=== PATIENT | male | born 1940 | race Hispanic/Latino ===

== ENCOUNTER 2017-03-26 09:10 | Emergency (ER) | payer MEDICARE ==
[2017-03-26 09:14] VITALS: TEMP 98
--- NOTE | 2017-03-26 09:36 | C.PDOC ---
Time Seen by Provider: 03/26/17 09:27 Chief Complaint (Nursing): Lower Extremity Problem/Injury Past Medical History Vital Signs: Last Vital Signs Temp 98.0 F 03/26/17 09:10 Pulse 70 03/26/17 09:10 Resp 20 03/26/17 09:10 BP 204/78 H 03/26/17 09:10 Pulse Ox 96 03/26/17 09:10 ED Course And Treatment O2 Sat by Pulse Oximetry: 96 Disposition - Disposition Condition: STABLE Forms: [employer] (Azeri)
--- NOTE | 2017-03-26 09:53 | C.PDOC ---
History Of Present Illness 76 year old male presents to ED for evaluation of multiple abrasions, right elbow pain, nausea, and headache s/p fall yesterday. Patient states that he fell down face forward when walking down a steep hill and sustained abrasions to right elbow, right knee, nose, and forehead. Patient admits to loss of consciousness for few seconds. Notes taking Tylenol for pain. Otherwise, denies vomiting, dizziness, extremity weakness, numbness, or any other associated symptoms at this time. Time Seen by Provider: 03/26/17 09:27 Chief Complaint (Nursing): Lower Extremity Problem/Injury History Per: Patient History/Exam Limitations: no limitations Onset/Duration Of Symptoms: Days (1) Current Symptoms Are (Timing): Still Present Recent travel outside of the [place]: No Additional History Per: Patient - Knee Description Of Injury: Fell Past Medical History Reviewed: Historical Data, Nursing Documentation, Vital Signs Vital Signs: Last Vital Signs Temp 98.0 F 03/26/17 09:10 Pulse 77 03/26/17 11:20 Resp 16 03/26/17 11:20 BP 165/78 H 03/26/17 11:20 Pulse Ox 96 03/26/17 12:00 - Medical History PMH: Asthma, HTN Family History: States: Unknown Family Hx Review Of Systems Except As Marked, All Systems Reviewed And Found Negative. Constitutional: Negative for: Fever, Chills Cardiovascular: Negative for: Chest Pain Respiratory: Negative for: Shortness of Breath Gastrointestinal: Positive for: Nausea. Negative for: Vomiting, Abdominal Pain Musculoskeletal: Positive for: Arm Pain (right elbow pain). Negative for: Neck Pain, Back Pain Skin: Positive for: Other (multiple abrasions s/p fall) Neurological: Positive for: Headache. Negative for: Weakness, Numbness, Dizziness Physical Exam - Physical Exam Appears: Non-toxic, No Acute Distress Skin: Warm, Dry, Other (abrasions to right elbow and right knee) Head: Normacephalic, No Tenderness, Abrasion (forehead right ) Eye(s): bilateral: Normal Inspection, PERRL, EOMI Nose: No Discharge, No Epistaxis, No Deformity, No Tenderness, Other (abrasion to nose) Oral Mucosa: Moist Neck: Normal ROM, Supple Chest: Symmetrical Cardiovascular: Rhythm Regular, No Murmur Respiratory: Normal Breath Sounds, No Rales, No Rhonchi, No Wheezing Extremity: Normal ROM (FROM of right arm and leg), Tenderness (right lateral elbow over abrasion), Capillary Refill (less than 2 seconds), No Deformity, Swelling (lateral aspect of right elbow) Pulses: Right Radial: Normal Neurological/Psych: Oriented x3, Normal Speech, Normal Motor, Normal Sensation Gait: Steady ED Course And Treatment O2 Sat by Pulse Oximetry: 96 (RA) Pulse Ox Interpretation: Normal - CT Scan/US Head CT Other Rad Studies (CT/US): Read By Radiologist, Radiology Report Reviewed CT/US Interpretation: PROCEDURE: CT HEAD WITHOUT CONTRAST. HISTORY: s.p trip and fall with injury. COMPARISON: None available. TECHNIQUE: Axial computed tomography images were obtained through the head/brain without intravenous contrast. Radiation dose: Total exam DLP = 893.33 mGy-cm. This CT exam was performed using one or more of the following dose reduction techniques: Automated exposure control, adjustment of the mA and/or kV according to patient size, and/or use of iterative reconstruction technique. FINDINGS: HEMORRHAGE: No intracranial hemorrhage. BRAIN: No mass effect or edema. Mild-to- moderate atrophy is noted. Mild white matter changes likely due to chronic microvascular ischemic disease. VENTRICLES: Unremarkable. No hydrocephalus. CALVARIUM: Unremarkable. PARANASAL SINUSES: Unremarkable as visualized. No significant inflammatory changes. MASTOID AIR CELLS: Unremarkable as visualized. No inflammatory changes. OTHER FINDINGS: None. IMPRESSION: No evidence of acute intracranial hemorrhage. Lapw-yi-[id number] atrophy. Maxillofacial CT Other Rad Studies (CT/US): Read By Radiologist, Radiology Report Reviewed CT/US Interpretation: PROCEDURE: CT MAXILLOFACIAL BONES WITHOUT CONTRAST. HISTORY: s.p trip and fall with injury. COMPARISON: None. TECHNIQUE: Contiguous axial CT images of the maxillofacial bones were obtained. Coronal and sagittal reformats were generated. Radiation dose: Total exam DLP = 761.27 mGy-cm. This CT exam was performed using one or more of the following dose reduction techniques: Automated exposure control, adjustment of the mA and/ or kV according to patient size, and/or use of iterative reconstruction technique. FINDINGS: NASAL BONES: No evidence of acute displaced fracture. ORBITS: Unremarkable. PARANASAL SINUSES/ MASTOIDS: Clear. MAXILLA: Unremarkable. MANDIBLE/ TEMPOROMANDIBULAR JOINTS: Unremarkable. SKULL BASE: Unremarkable. TEMPORAL BONES: Middle ears and mastoid grossly unremarkable. OTHER FINDINGS: Mild soft tissue swelling seen at the frontal and right periorbital region. Status post internal fixation at the cervical spine. IMPRESSION: No evidence of acute fracture of the maxillofacial bones. Mild soft tissue swelling at the frontal and right periorbital region. Medical Decision Making Medical Decision Making: Impression: Fall Plan: * Right elbow x-ray * Right knee x-ray * Maxillofacial CT * Head CT Progress: All imaging reviewed, see official reports. No fractures or ICH Reassess Patient remained alert and oriented seated comfortably in no distress. I explained all results and provided copy of reports. Bacitracin and dressings applied to wounds. Disposition Counseled Patient/Family Regarding: Diagnosis, Need For Followup, Rx Given - Disposition Referrals: Billie Cao MD [Staff Provider] - Disposition: HOME/ ROUTINE Disposition Time: 12:00 Condition: STABLE Additional Instructions: Follow up with your primary medical doctor or clinic in 2-5 days for further evaluation. Take pain medications as needed. Return to the emergency department at any time if symptoms persist or worsen. Instructions: Contusion in Adults (ED), Abrasion (ED) Forms: [employer] (Guatemalan) - POA Present On Arrival: None - Clinical Impression Clinical Impression: Accidental fall, Multiple abrasions - PA / [employer] / Resident Statement MD/DO has reviewed & agrees with the documentation as recorded. - Scribe Statement The provider has reviewed the documentation as recorded by the Scribe Akanksha Galdamez All medical record entries made by the Arleneibe were at my direction and personally dictated by me. I have reviewed the chart and agree that the record accurately reflects my personal performance of the history, physical exam, medical decision making, and the department course for this patient. I have also personally directed, reviewed, and agree with the discharge instructions and disposition.
--- NOTE | 2017-03-26 10:52 | RAD ---
PROCEDURE: Radiographs of the right elbow. HISTORY: s.p trip and fall with injury COMPARISON: No prior. FINDINGS: BONES: No evidence of acute displaced fracture JOINTS: Mild osteoarthritic changes. SOFT TISSUES: Moderate soft tissue swelling seen at the posterior aspect of the right elbow. JOINT EFFUSION: No evidence of significant joint effusion OTHER FINDINGS: None. IMPRESSION: No evidence of acute fracture or dislocation. Moderate soft tissue swelling at the posterior aspect of the right elbow.
--- NOTE | 2017-03-26 10:54 | RAD ---
PROCEDURE: Right Knee Radiographs. HISTORY: s.p trip and fall with injury COMPARISON: None. FINDINGS: BONES: Normal. No fracture. JOINTS: Normal. No osteoarthritis. JOINT EFFUSION: None. OTHER FINDINGS: Mild soft tissue swelling IMPRESSION: No evidence of acute fracture or dislocation.
[2017-03-26 11:21] VITALS: BP 165/78; PULSE 77; RESP 16
--- NOTE | 2017-03-26 11:34 | CT ---
PROCEDURE: CT HEAD WITHOUT CONTRAST. HISTORY: s.p trip and fall with injury COMPARISON: None available. TECHNIQUE: Axial computed tomography images were obtained through the head/brain without intravenous contrast. Radiation dose: Total exam DLP = 893.33 mGy-cm. This CT exam was performed using one or more of the following dose reduction techniques: Automated exposure control, adjustment of the mA and/or kV according to patient size, and/or use of iterative reconstruction technique. FINDINGS: HEMORRHAGE: No intracranial hemorrhage. BRAIN: No mass effect or edema. Hexp-hv-wmiigdxu atrophy is noted. Mild white matter changes likely due to chronic microvascular ischemic disease. VENTRICLES: Unremarkable. No hydrocephalus. CALVARIUM: Unremarkable. PARANASAL SINUSES: Unremarkable as visualized. No significant inflammatory changes. MASTOID AIR CELLS: Unremarkable as visualized. No inflammatory changes. OTHER FINDINGS: None. IMPRESSION: No evidence of acute intracranial hemorrhage. Wbev-gh-edkrjiag atrophy.
[2017-03-26 11:48] VITALS: O2SAT 96
--- NOTE | 2017-03-26 11:51 | CT ---
PROCEDURE: CT MAXILLOFACIAL BONES WITHOUT CONTRAST HISTORY: s.p trip and fall with injury COMPARISON: None TECHNIQUE: Contiguous axial CT images of the maxillofacial bones were obtained. Coronal and sagittal reformats were generated. Radiation dose: Total exam DLP = 761.27 mGy-cm. This CT exam was performed using one or more of the following dose reduction techniques: Automated exposure control, adjustment of the mA and/or kV according to patient size, and/or use of iterative reconstruction technique. FINDINGS: NASAL BONES: No evidence of acute displaced fracture ORBITS: Unremarkable. PARANASAL SINUSES/ MASTOIDS: Clear. MAXILLA: Unremarkable. MANDIBLE/ TEMPOROMANDIBULAR JOINTS: Unremarkable. SKULL BASE: Unremarkable. TEMPORAL BONES: Middle ears and mastoid grossly unremarkable. OTHER FINDINGS: Mild soft tissue swelling seen at the frontal and right periorbital region. Status post internal fixation at the cervical spine. IMPRESSION: No evidence of acute fracture of the maxillofacial bones. Mild soft tissue swelling at the frontal and right periorbital region.
[2017-03-26] MEDS ORDERED: Bacitracin 500 Units/gm Oint Foilpak UD TOP ONE (12:01)
[2017-03-26] MEDS ORDERED: Bacitracin 500 Units/gm Oint Foilpak UD ONE (12:11)
== END 2017-03-26 12:22 | disposition home or self-care (01) ==
LOC: C.ER 09:10
DX: S50.311A Abrasion of right elbow, initial encounter (principal); S80.211A Abrasion, right knee, initial encounter; S00.31XA Abrasion of nose, initial encounter; W01.0XXA Fall on same level from slipping, tripping and stumbling without subsequent striking against object, initial encounter; Y93.01 Activity, walking, marching and hiking; Y92.89 Other specified places as the place of occurrence of the external cause

== ENCOUNTER 2017-04-13 11:05 | Inpatient (IN) | payer MEDICARE ==
[2017-04-13 11:15] VITALS: BMI 26.6
[2017-04-13] MEDS ORDERED: Sodium Chloride 0.9% 1,000 ML IV ONE (11:40)
[2017-04-13 11:58] LABS: BASO # 0.1 K/uL (0.0-0.2); BASO % 0.5 % (0.0-2.0); EOS # 0.3 K/uL (0.0-0.7); EOS % 2.7 % (0.0-4.0); HEMOGLOBIN 12.2 g/dL (12.0-18.0); LYMPH # 1.6 K/uL (1.0-4.3); LYMPH % 14.7 % (20.0-40.0); MEAN CELL VOLUME 101.5 fL (80.0-94.0); MEAN CORPUSCULAR HEMOGLOBIN 34.1 pg (27.0-31.0); MEAN CORPUSCULAR HGB CONC 33.6 g/dL (33.0-37.0); MEAN PLATELET VOLUME 8.2 fL (7.2-11.7); MONO # 1.7 K/uL (0.0-0.8); MONO % 15.8 % (0.0-10.0); NEUT % 66.3 % (50.0-75.0); RBC 3.58 Mil/uL (4.40-5.90); RED CELL DISTRIBUTION WIDTH 13.2 % (11.5-14.5); WHITE BLOOD COUNT 10.6 K/uL (4.8-10.8)
[2017-04-13] MEDS ORDERED: Sodium Chloride 0.9% 1,000 ML ONE ×2 (12:00→17:42)
[2017-04-13 12:11] LABS: ALBUMIN 3.6 g/dL (3.5-5.0); ALT/SGPT 23 U/L (21-72); AST/SGOT 20 U/L (17-59); BLOOD UREA NITROGEN 16 mg/dL (9-20); CALCIUM 7.6 mg/dl (8.6-10.4); GFR AFRICAN-AMERICAN > 60; GFR NON-AFRICAN AMERICAN 59
[2017-04-13] MEDS ORDERED: Potassium Chloride 20 mEq ER Tab PO STA (14:11)
[2017-04-13] MEDS ORDERED: Potassium Chloride 20 mEq ER Tab PO ONE (14:16)
--- NOTE | 2017-04-13 14:16 | C.PDOC ---
History Of Present Illness 76-year-old male presents to the emergency department with complaints of watery , dark colored diarrhea for the past two weeks (started on 03/28) after being started on Clindamycin (on 03/26) for a wound infection. Patient notes associated generalized weakness and feeling light headed. He denies chest pain, shortness of breath, fever, dysuria/hematuria, palpitations. Patient took only two days of Climdamycin, stopped when diarrhea began. Time Seen by Provider: 04/13/17 11:08 Chief Complaint (Nursing): Weakness/Neurological Deficit History Per: Patient History/Exam Limitations: no limitations Onset/Duration Of Symptoms: Days Current Symptoms Are (Timing): Still Present Past Medical History Reviewed: Historical Data, Nursing Documentation, Vital Signs Vital Signs: Last Vital Signs Temp 98.5 F 04/13/17 18:19 Pulse 85 04/13/17 18:19 Resp 18 04/13/17 18:19 BP 140/67 04/13/17 18:19 Pulse Ox 96 04/13/17 18:19 - Medical History PMH: Asthma, COPD, HTN, Pneumonia Family History: States: No Known Family Hx - Social History Hx Alcohol Use: Yes Hx Substance Use: No - Immunization History Hx Tetanus Toxoid Vaccination: No Review Of Systems Except As Marked, All Systems Reviewed And Found Negative. Constitutional: Positive for: Weakness, Other (light headedness). Negative for : Fever, Chills Cardiovascular: Negative for: Chest Pain, Palpitations Respiratory: Negative for: Cough, Shortness of Breath Gastrointestinal: Positive for: Diarrhea. Negative for: Nausea, Vomiting, Abdominal Pain Genitourinary: Negative for: Dysuria, Hematuria Musculoskeletal: Negative for: Back Pain Neurological: Negative for: Numbness, Headache Physical Exam - Physical Exam Appears: Well, Non-toxic, No Acute Distress, Other (appears fatigued) Skin: Normal Color, Warm, Dry, No Rash Head: Normacephalic Eye(s): bilateral: Normal Inspection Oral Mucosa: Moist Cardiovascular: Rhythm Regular Respiratory: Normal Breath Sounds, No Rales, No Rhonchi, No Wheezing Gastrointestinal/Abdominal: Bowel Sounds, Soft, Tenderness (mild, B/L lower quadrants TTP), No Distention, No Guarding, No Rebound Rectal: Rectal Tone (Normal), No Heme Positive, No Blood Streaked Stool, No Hemorrhoids, No Mass, No Tenderness Back: No CVA Tenderness Extremity: Normal ROM Neurological/Psych: Oriented x3 ED Course And Treatment - Laboratory Results Result Diagrams: 04/13/17 11:53 04/13/17 11:53 ECG: Interpreted By Me, Viewed By Me (NSR 87 bpm, left axis deviation, QTs 486ms , no acute ST/T wave changes) ECG Interpretation: Abnormal O2 Sat by Pulse Oximetry: 95 (on RA) Pulse Ox Interpretation: Normal Progress Note: Bloodwork, EKG, and UA ordered and reviewed. Patient treated with PO Bentyl, IV NS bolus, PO Kdur. IV flagyl given. Reevaluation Time: 15:00 Reassessment Condition: Improved (Patient resting comfortably, states abdominal cramps have improved, currently resting comfortably.) - Physician Consult Information Physician Contacted: Billie Cao Outcome Of Conversation: Discussed patient with PMD, agrees with admission for generalized weakness, persistent diarrhea, hypokalemia, dehydration. Patient to be isolated for possible C diff colitis (persistent diarrhea after PO Clindamycin). Disposition - Disposition Disposition Time: 15:06 Condition: STABLE - Clinical Impression Clinical Impression: Dehydration, Hypokalemia, Generalized weakness, Diarrhea - Scribe Statement The provider has reviewed the documentation as recorded by the Scribe (Joy Doshi) All medical record entries made by the Scribe were at my direction and personally dictated by me. I have reviewed the chart and agree that the record accurately reflects my personal performance of the history, physical exam, medical decision making, and the department course for this patient. I have also personally directed, reviewed, and agree with the discharge instructions and disposition. Decision To Admit - Pt Status Changed To: Hospital Disposition Of: Inpatient - Admit Certification Admit to Inpatient:: After my assessment, the patient will require hospitalization for at least two midnights. This is because of the severity of symptoms shown, intensity of services needed, and/or the medical risk in this patient being treated as an outpatient. - InPatient: Physician Admission Certification: I certify that this patient requires 2 or more midnights of care for the following reason:: see notes - . Bed Request Type: Regular Admitting Physician: Billie Cao Patient Diagnosis: Dehydration, Generalized weakness, Diarrhea, Hypokalemia
[2017-04-13] MEDS ORDERED: Bacitracin 500 Units/gm Oint Foilpak UD ONE (14:56)
[2017-04-13] MEDS ORDERED: metroNIDAZOLE IV 500 mg/100 ml 500 MG/100 ML BAG ONE (15:12)
[2017-04-13] MEDS ORDERED: metroNIDAZOLE IV 500 mg/100 ml 500 MG/100 ML BAG IV ONE (16:00)
[2017-04-13] MEDS: Sodium Chloride 0.9% 1,000 ML IV SCH (17:50)
[2017-04-13] MEDS ORDERED: Metoprolol Succinate 25 mg XL Tab PO SCH (18:00)
--- NOTE | 2017-04-13 19:32 | CP.PCM.HP ---
History of Present Illness - History of Present Illness History of Present Illness: A 76 year old male with history of hypertension, COPD, neuropathy came for diarrhea for two weeks. He had a wound infection on right elbow due to fall, and took clindamycin for two days. He developed watery, dark colored diarrhea more than 10 times a day. He took Imodium with no relief. He had chills, but no fever. He had extreme weakness and labored breathing. Present on Admission - Present on Admission Any Indicators Present on Admission: No History of DVT/PE: No History of Uncontrolled Diabetes: No Urinary Catheter: No Decubitus Ulcer Present: No Review of Systems - Cardiovascular Cardiovascular: absent: Chest Pain - Respiratory Respiratory: Dyspnea. absent: Cough - Gastrointestinal Gastrointestinal: Diarrhea, Loose Stools. absent: Nausea, Vomiting - Genitourinary Genitourinary: absent: Difficulty Urinating Past Patient History - Past Social History Smoking Status: Never Smoked - CARDIAC Hx Hypertension: Yes - PULMONARY Hx Asthma: Yes Hx Chronic Obstructive Pulmonary Disease (COPD): Yes Hx Pneumonia: Yes - MUSCULOSKELETAL/RHEUMATOLOGICAL Other/Comment: SPINAL CORD INJURY - PSYCHIATRIC Hx Substance Use: No Meds Allergies/Adverse Reactions: Allergies Allergy/AdvReac Type Severity Reaction Status Date / Time lisinopril Allergy UNKNOWN Verified 03/26/17 09:22 monosodium glutamate Allergy UNKNOWN Verified 03/26/17 09:25 naproxen Allergy UNKNOWN Verified 03/26/17 09:23 Physical Exam - Constitutional Appears: No Acute Distress - Head Exam Head Exam: NORMAL INSPECTION - Eye Exam Eye Exam: Normal appearance - ENT Exam ENT Exam: Mucous Membranes Moist - Neck Exam Neck exam: Positive for: Full Rom. Negative for: Tenderness - Respiratory Exam Respiratory Exam: Clear to Auscultation Bilateral. absent: Decreased Breath Sounds, Rales, Wheezes - Cardiovascular Exam Cardiovascular Exam: REGULAR RHYTHM, +S1, +S2. absent: Systolic Murmur - GI/Abdominal Exam GI & Abdominal Exam: Normal Bowel Sounds, Soft, Tenderness (mid-lower and LLQ abdomen) Results - Vital Signs Recent Vital Signs: Last Vital Signs Temp 98.5 F 04/13/17 18:19 Pulse 85 04/13/17 18:19 Resp 18 04/13/17 18:19 BP 147/79 04/13/17 18:42 Pulse Ox 95 04/13/17 18:48 - Labs Result Diagrams: 04/13/17 11:53 12/27/17 11:53 Labs: Laboratory Results - last 24 hr 04/13/17 04/13/17 04/13/17 11:12 11:53 11:53 WBC 10.6 RBC 3.58 L Hgb 12.2 Hct 36.4 MCV 101.5 H MCH 34.1 H MCHC 33.6 RDW 13.2 Plt Count 396 MPV 8.2 Neut % (Auto) 66.3 Lymph % (Auto) 14.7 L [place] % (Auto) 15.8 H Eos % (Auto) 2.7 Baso % (Auto) 0.5 Neut # 7.0 Lymph # 1.6 [place] # 1.7 H Eos # 0.3 Baso # 0.1 Sodium 132 Potassium 3.0 L Chloride 95 L Carbon Dioxide 27 Anion Gap 14 BUN 16 Creatinine 1.2 Est GFR ( Amer) > 60 Est GFR (Non-Af Amer) 59 POC Glucose (mg/dL) 140 H Random Glucose 131 H Calcium 7.6 L Total Bilirubin 0.6 AST 20 ALT 23 Alkaline Phosphatase 60 Total Protein 7.3 Albumin 3.6 Globulin 3.7 Albumin/Globulin Ratio 1.0 Stool Occult Blood 04/13/17 14:12 WBC RBC Hgb Hct MCV MCH MCHC RDW Plt Count MPV Neut % (Auto) Lymph % (Auto) [place] % (Auto) Eos % (Auto) Baso % (Auto) Neut # Lymph # [place] # Eos # Baso # Sodium Potassium Chloride Carbon Dioxide Anion Gap BUN Creatinine Est GFR ( Amer) Est GFR (Non-Af Amer) POC Glucose (mg/dL) Random Glucose Calcium Total Bilirubin AST ALT Alkaline Phosphatase Total Protein Albumin Globulin Albumin/Globulin Ratio Stool Occult Blood Negative Assessment & Plan - Assessment and Plan (Free Text) Assessment: antibiotics associated diarrhea acute gastroenteritis dehydration hypokalemia history of COPD, HTN, elevated cholesterol Plan: intravenous fluid IV flagyl GI consult replace potassium and recheck labs in AM. - Date & Time Date: 04/13/17 Time: 19:35 Decision To Admit - Pt Status Changed To: Hospital Disposition Of: Inpatient - Admit Certification Admit to Inpatient:: After my assessment, the patient will require hospitalization for at least two midnights. This is because of the severity of symptoms shown, intensity of services needed, and/or the medical risk in this patient being treated as an outpatient. - InPatient: Physician Admission Certification:: as ordered - . Bed Request Type: Regular Admitting Physician: Billie Cao
[2017-04-13 21:09] VITALS: RESP 20
[2017-04-13] MEDS ORDERED: Pneumococcal 23-Valent Vaccine IM ONE (21:33)
[2017-04-13] MEDS ORDERED: Influenza Vaccine 60 mcg/0.5 mL SYR (4YR UP) IM ONE (21:37)
[2017-04-13] MEDS: metroNIDAZOLE IV 500 mg/100 ml 500 MG/100 ML BAG IVPB SCH (22:04)
[2017-04-14] MEDS: metroNIDAZOLE IV 500 mg/100 ml 500 MG/100 ML BAG IVPB SCH ×3 (06:02→21:27)
[2017-04-14] MEDS: Sodium Chloride 0.9% 1,000 ML IV SCH (06:04)
[2017-04-14 08:09] LABS: SQUAMOUS EPITHIAL < 1 /hpf (0-5); URINE BILIRUBIN NEGATIVE (NEGATIVE); URINE BLOOD NEGATIVE (NEGATIVE); URINE CLARITY Clear (Clear); URINE COLOR Yellow (YELLOW); URINE GLUCOSE (UA) NORMAL (Normal); URINE LEUKOCYTE ESTERASE NEG Leu/uL (Negative); URINE NITRATE NEGATIVE (NEGATIVE); URINE PROTEIN NEGATIVE (NEGATIVE); URINE UROBILINOGEN NORMAL mg/dL (0.2-1.0)
--- NOTE | 2017-04-14 08:13 | CP.PCM.PN ---
Subjective - Date & Time of Evaluation Date of Evaluation: 04/14/17 Time of Evaluation: 08:10 - Subjective Subjective: less diarrhea milld labored breathing Objective - Vital Signs/Intake and Output Vital Signs (last 24 hours): Temp Pulse Resp BP Pulse Ox 98.5 F 79 20 116/66 94 L 04/14/17 00:00 04/14/17 00:00 04/14/17 00:00 04/14/17 00:00 04/14/17 00:00 Intake and Output: 04/14/17 04/14/17 06:59 18:59 Intake Total 1500 Output Total 2 Balance 1498 - Medications Medications: Current Medications Acetaminophen (Tylenol 325mg Tab) 650 mg PO Q6 PRN PRN Reason: Pain, Mild (1-3) Baclofen (Lioresal) 10 mg PO TID [facility] Last Admin: 04/13/17 18:42 Dose: Not Given Enoxaparin Sodium (Lovenox) 40 mg SC DAILY [facility] Gabapentin (Neurontin) 800 mg PO TID [facility] Last Admin: 04/13/17 18:42 Dose: 800 mg Metronidazole (Flagyl) 500 mg in 100 mls @ 100 mls/hr IVPB Q8 [facility] Last Admin: 04/14/17 06:02 Dose: 100 mls/hr Sodium Chloride (Sodium Chloride 0.9%) 1,000 mls @ 80 mls/hr IV .[id number] [facility] Last Admin: 04/14/17 06:04 Dose: 80 mls/hr Metoprolol Tartrate (Lopressor) 25 mg PO BID [facility] Last Admin: 04/13/17 18:42 Dose: 25 mg Pantoprazole Sodium (Protonix Inj) 40 mg IVP DAILY [facility] Rosuvastatin Calcium (Crestor) 20 mg PO HS [facility] Last Admin: 04/13/17 22:05 Dose: 20 mg - Labs Labs: 04/13/17 11:53 04/13/17 11:53 - Constitutional Appears: No Acute Distress - Respiratory Exam Respiratory Exam: Clear to Ausculation Bilateral. absent: Rales, Wheezes - Cardiovascular Exam Cardiovascular Exam: REGULAR RHYTHM. absent: Murmur - GI/Abdominal Exam GI & Abdominal Exam: Soft, Tenderness (mild lower abdominal) Assessment and Plan - Assessment and Plan (Free Text) Assessment: antibiotic associated diarrhea acute gastroenteritis history of COPD, recent fall, hypertension Plan: initial stool c-diff was negative. improving status iv fluid flagyl as per GI
--- NOTE | 2017-04-14 09:08 | CP.PCM.CON ---
<Claire Martin - Last Filed: 04/14/17 09:19> History of Present Illness - History of Present Illness History of Present Illness: GI Fellow PGY4 Consult Note This is a 76yM with pmhx HTN, HLD, neuropathy of presenting with complaints of watery diarrhea for 2 weeks. Pt reports his symptoms started soon after starting abx Clindamycin on 03/30/17 for wound infection. He took the medicine for 3 days when his diarrhea started so he stopped the abx and took Immodium and Pepto-bismol intermittently during the two weeks with no improvement. He reports 7-10 episodes of water diarrhea daily for two weeks, denies foul odor, melena or hematochezia. Pt had associated nausea and pelvic pain but no vomiting. Decreased appetite but no weightloss. Pt has never had a colonoscopy only an EGD 2yrs ago at the [facility] with bx negative per pt. Pt reports 3 watery BM overnight and only one BM this morning which was somewhat formed and brown in color. Pt ate his breakfast this am, first time in many days. Pt denies any fevers, chills, sick contacts or recent travel. ROS: A 12pt ROS neg except as above PmHx: As stated in HPI PSHx: None SHx: Denies tobacco, etoh, drugs FHx: Denies colon or gastric cancer Past Patient History - Past Medical History & Family History Past Medical History?: Yes - Past Social History Smoking Status: Never Smoked - CARDIAC Hx Hypertension: Yes - PULMONARY Hx Asthma: Yes Hx Chronic Obstructive Pulmonary Disease (COPD): Yes Hx Pneumonia: Yes - MUSCULOSKELETAL/RHEUMATOLOGICAL Hx Falls: Yes (2 weeks ago) Other/Comment: SPINAL CORD INJURY - PSYCHIATRIC Hx Substance Use: No - ANESTHESIA Hx Anesthesia: Yes Hx Anesthesia Reactions: No Meds Allergies/Adverse Reactions: Allergies Allergy/AdvReac Type Severity Reaction Status Date / Time lisinopril Allergy UNKNOWN Verified 03/26/17 09:22 monosodium glutamate Allergy UNKNOWN Verified 03/26/17 09:25 naproxen Allergy UNKNOWN Verified 03/26/17 09:23 - Medications Medications: Current Medications Acetaminophen (Tylenol 325mg Tab) 650 mg PO Q6 PRN PRN Reason: Pain, Mild (1-3) Baclofen (Lioresal) 10 mg PO TID [facility] Last Admin: 12/27/17 18:42 Dose: Not Given Enoxaparin Sodium (Lovenox) 40 mg SC DAILY [facility] Gabapentin (Neurontin) 800 mg PO TID [facility] Last Admin: 04/13/17 18:42 Dose: 800 mg Metronidazole (Flagyl) 500 mg in 100 mls @ 100 mls/hr IVPB Q8 [facility] Last Admin: 04/14/17 06:02 Dose: 100 mls/hr Sodium Chloride (Sodium Chloride 0.9%) 1,000 mls @ 80 mls/hr IV .[id number] [facility] Last Admin: 04/14/17 06:04 Dose: 80 mls/hr Metoprolol Tartrate (Lopressor) 25 mg PO BID [facility] Last Admin: 04/13/17 18:42 Dose: 25 mg Pantoprazole Sodium (Protonix Inj) 40 mg IVP DAILY [facility] Rosuvastatin Calcium (Crestor) 20 mg PO HS [facility] Last Admin: 04/13/17 22:05 Dose: 20 mg Physical Exam - Constitutional Appears: Non-toxic, No Acute Distress - Head Exam Head Exam: ATRAUMATIC, NORMAL INSPECTION, NORMOCEPHALIC - Eye Exam Eye Exam: EOMI, Normal appearance, PERRL Pupil Exam: PERRL - ENT Exam ENT Exam: Mucous Membranes Moist, Normal Exam - Respiratory Exam Respiratory Exam: Clear to Auscultation Bilateral, NORMAL BREATHING PATTERN - Cardiovascular Exam Cardiovascular Exam: REGULAR RHYTHM - GI/Abdominal Exam GI & Abdominal Exam: Normal Bowel Sounds, Soft, Tenderness. absent: Distended, Guarding, Organomegaly - Rectal Exam Rectal Exam: Deferred - Extremities Exam Extremities exam: Positive for: normal inspection - Neurological Exam Neurological exam: Alert, Oriented x3 - Psychiatric Exam Psychiatric exam: Normal Affect, Normal Mood - Skin Skin Exam: Dry, Intact, Normal Color, Warm Results - Vital Signs Recent Vital Signs: Last Vital Signs Temp 98.6 F 04/14/17 08:00 Pulse 94 H 04/14/17 08:00 Resp 20 04/14/17 08:00 BP 136/76 04/14/17 08:00 Pulse Ox 97 04/14/17 08:00 - Labs Result Diagrams: 04/13/17 11:53 04/13/17 11:53 Labs: Laboratory Results - last 24 hr 04/13/17 04/13/17 04/13/17 11:12 11:53 11:53 WBC 10.6 RBC 3.58 L Hgb 12.2 Hct 36.4 MCV 101.5 H MCH 34.1 H MCHC 33.6 RDW 13.2 Plt Count 396 MPV 8.2 Neut % (Auto) 66.3 Lymph % (Auto) 14.7 L [place] % (Auto) 15.8 H Eos % (Auto) 2.7 Baso % (Auto) 0.5 Neut # 7.0 Lymph # 1.6 [place] # 1.7 H Eos # 0.3 Baso # 0.1 Sodium 132 Potassium 3.0 L Chloride 95 L Carbon Dioxide 27 Anion Gap 14 BUN 16 Creatinine 1.2 Est GFR ( Amer) > 60 Est GFR (Non-Af Amer) 59 POC Glucose (mg/dL) 140 H Random Glucose 131 H Calcium 7.6 L Total Bilirubin 0.6 AST 20 ALT 23 Alkaline Phosphatase 60 Total Protein 7.3 Albumin 3.6 Globulin 3.7 Albumin/Globulin Ratio 1.0 Urine Color Urine Clarity Urine pH Ur Specific [place] Urine Protein Urine Glucose (UA) Urine Ketones Urine Blood Urine Nitrate Urine Bilirubin Urine Urobilinogen Ur Leukocyte Esterase Urine WBC (Auto) Urine RBC (Auto) Ur Squamous Epith Cells Stool Occult Blood C. difficile Ag & Toxin 04/13/17 04/13/17 04/14/17 14:12 18:00 07:49 WBC RBC Hgb Hct MCV MCH MCHC RDW Plt Count MPV Neut % (Auto) Lymph % (Auto) [place] % (Auto) Eos % (Auto) Baso % (Auto) Neut # Lymph # [place] # Eos # Baso # Sodium Potassium Chloride Carbon Dioxide Anion Gap BUN Creatinine Est GFR ( Amer) Est GFR (Non-Af Amer) POC Glucose (mg/dL) Random Glucose Calcium Total Bilirubin AST ALT Alkaline Phosphatase Total Protein Albumin Globulin Albumin/Globulin Ratio Urine Color Yellow Urine Clarity Clear Urine pH 6.0 Ur Specific [place] 1.016 Urine Protein Negative Urine Glucose (UA) Normal Urine Ketones 1+ H Urine Blood Negative Urine Nitrate Negative Urine Bilirubin Negative Urine Urobilinogen Normal Ur Leukocyte Esterase Neg Urine WBC (Auto) 2 Urine RBC (Auto) 2 Ur Squamous Epith Cells < 1 Stool Occult Blood Negative C. difficile Ag & Toxin Negative Assessment & Plan - Assessment and Plan (Free Text) Assessment: This is a 76yM presenting with complaints of watery diarrhea for 2 weeks. 1. Diarrhea 2. Abdominal Pain Plan: -Continue supportive care with IVF hydration -Continue regular diet as tolerated -Stool studies sent to r/o infectious etiology, Cdiff negative, further workup pending -CBC and CMP negative, vitals stable -Continue abx with Metronidazole -If continues to have diarrhea recommend CT Abd/Pel with po contrast -Recommend outpt colonoscopy with no prior endoscopic evaluation, pt refusing at this time -Will continue to follow closely <Carloz Mclean - Last Filed: 04/14/17 16:36> Meds - Medications Medications: Current Medications Acetaminophen (Tylenol 325mg Tab) 650 mg PO Q6 PRN PRN Reason: Pain, Mild (1-3) Baclofen (Lioresal) 10 mg PO TID [facility] Last Admin: 04/14/17 13:43 Dose: 10 mg Enoxaparin Sodium (Lovenox) 40 mg SC DAILY [facility] Last Admin: 04/14/17 09:16 Dose: 40 mg Gabapentin (Neurontin) 600 mg PO BID [facility] Metronidazole (Flagyl) 500 mg in 100 mls @ 100 mls/hr IVPB Q8 [facility] Last Admin: 04/14/17 13:43 Dose: 100 mls/hr Sodium Chloride (Sodium Chloride 0.9%) 1,000 mls @ 80 mls/hr IV .[id number] [facility] Last Admin: 04/14/17 06:04 Dose: 80 mls/hr Metoprolol Tartrate (Lopressor) 25 mg PO BID [facility] Last Admin: 04/14/17 09:16 Dose: 25 mg Pantoprazole Sodium (Protonix Inj) 40 mg IVP DAILY [facility] Last Admin: 04/14/17 09:16 Dose: 40 mg Rosuvastatin Calcium (Crestor) 20 mg PO HS [facility] Last Admin: 04/13/17 22:05 Dose: 20 mg Results - Vital Signs Recent Vital Signs: Last Vital Signs Temp 97.3 F L 04/14/17 15:00 Pulse 78 04/14/17 15:00 Resp 20 04/14/17 15:00 BP 142/63 04/14/17 15:00 Pulse Ox 96 04/14/17 15:00 - Labs Result Diagrams: 04/13/17 11:53 04/13/17 11:53 Labs: Laboratory Results - last 24 hr 04/13/17 04/14/17 18:00 07:49 Urine Color Yellow Urine Clarity Clear Urine pH 6.0 Ur Specific [place] 1.016 Urine Protein Negative Urine Glucose (UA) Normal Urine Ketones 1+ H Urine Blood Negative Urine Nitrate Negative Urine Bilirubin Negative Urine Urobilinogen Normal Ur Leukocyte Esterase Neg Urine WBC (Auto) 2 Urine RBC (Auto) 2 Ur Squamous Epith Cells < 1 C. difficile Ag & Toxin Negative Attending/Attestation - Attestation I have personally seen and examined this patient.: Yes I have fully participated in the care of the patient.: Yes I have reviewed all pertinent clinical information: Yes Notes (Text): 04/14/17 16:29 I have seen and examined patient with GI fellow. Agree with above documentation with the following additions. In brief, this is a 76 year old male with medical history of HTN, hyperlipidemia, who presents to hospital with complaint of persistent diarrhea for the past 2 weeks. Prior to this he was in usual state of health. His symptoms started shortly after taking clindamycin for lower extremity wound infection. He describes having up to 7-10 watery loose bowel movements per day during this time frame. He denies associated abdominal pain, nausea, vomiting, fever/chills, weight loss, or blood in stool. He does endorse fatigue and inability to tolerate PO diet. He tried using immodium and pepto bismol without significant relief of symptoms. He had an EGD two years ago at [facility], no prior colonoscopy. HTN Hyperlipidemia Diarrhea - etiology unclear, though possibly infectious given time proximity of clindamycin use - Diet as tolerated - Awaiting results of stool studies - Though C-difficile negative, would suggest continuing with flagyl for time being and repeating test - If patient symptoms persist despite conservative therapy, would suggest CT imaging for further evaluation - Patient was recommended to have elective outpatient colonoscopy following resolution of acute symptoms, though he is adamantly refusing at this time. Risks of this strategy were discussed with patient in detail, he is willing to accept risk of having potential underlying disease go undetected. - Will continue to monitor patient clinical course. Case discussed with Dr. Cao.
[2017-04-14] MEDS: Enoxaparin 40 mg Syringe SC SCH (09:16)
[2017-04-14] MEDS ORDERED: Potassium Chloride 20 mEq ER Tab PO ONE (11:45)
--- NOTE | 2017-04-14 15:40 | CARD ---
APPROVED REPORT EKG Measurement Heart [id number] CT 154P3 [id number] <Conclusion> Normal sinus rhythm Minimal voltage criteria for LVH, may be normal variant Nonspecific ST abnormality Prolonged QT Abnormal ECG
[2017-04-15] MEDS: Sodium Chloride 0.9% 1,000 ML IV SCH ×3 (00:17→20:08)
[2017-04-15] MEDS: metroNIDAZOLE IV 500 mg/100 ml 500 MG/100 ML BAG IVPB SCH (05:14)
[2017-04-15 06:24] LABS: BASO # 0.1 K/uL (0.0-0.2); BASO % 0.7 % (0.0-2.0); EOS # 0.3 K/uL (0.0-0.7); EOS % 4.3 % (0.0-4.0); HEMOGLOBIN 11.1 g/dL (12.0-18.0); MEAN CELL VOLUME 100.7 fL (80.0-94.0); MEAN CORPUSCULAR HEMOGLOBIN 34.3 pg (27.0-31.0); MEAN PLATELET VOLUME 7.8 fL (7.2-11.7); NEUT # 4.3 K/uL (1.8-7.0); RBC 3.23 Mil/uL (4.40-5.90); RED CELL DISTRIBUTION WIDTH 13.3 % (11.5-14.5); WHITE BLOOD COUNT 7.7 K/uL (4.8-10.8)
--- NOTE | 2017-04-15 06:55 | CP.PCM.PN ---
<RockyLeslee - Last Filed: 04/15/17 09:34> Subjective - Date & Time of Evaluation Date of Evaluation: 04/15/17 Time of Evaluation: 07:19 - Subjective Subjective: PG2 GI Note for Dr. Bojorquez Patient seen and examined at bedside. Nursing and patient reported 2 watery BMs overnight that woke patient up. He reported the pain he was having in his lower abdomen has resolved since admission. Patient enjoyed and tolerated his meal last night and denied any nausea/vomiting. Patient denied any noticing any melena, hematochezia, foul smelling odor. On complete ROS patient denied fever, chills, headache, dizziness, chest pain, palpitations, SOB, cough, bladder complaints, pain/swelling in his legs bilaterally. Objective - Vital Signs/Intake and Output Vital Signs (last 24 hours): Temp Pulse Resp BP Pulse Ox 97.9 F 86 20 145/62 95 04/15/17 00:00 04/15/17 00:00 04/15/17 00:00 04/15/17 00:00 04/15/17 00:00 Intake and Output: 04/14/17 04/15/17 18:59 06:59 Intake Total 920 1950 Output Total 3 Balance 920 1947 - Medications Medications: Current Medications Acetaminophen (Tylenol 325mg Tab) 650 mg PO Q6 PRN PRN Reason: Pain, Mild (1-3) Baclofen (Lioresal) 10 mg PO TID [facility] Last Admin: 04/14/17 18:04 Dose: 10 mg Enoxaparin Sodium (Lovenox) 40 mg SC DAILY [facility] Last Admin: 04/14/17 09:16 Dose: 40 mg Gabapentin (Neurontin) 600 mg PO BID [facility] Last Admin: 04/14/17 18:07 Dose: 600 mg Metronidazole (Flagyl) 500 mg in 100 mls @ 100 mls/hr IVPB Q8 [facility] Last Admin: 04/15/17 05:14 Dose: 100 mls/hr Sodium Chloride (Sodium Chloride 0.9%) 1,000 mls @ 80 mls/hr IV .[id number] [facility] Last Admin: 04/15/17 00:17 Dose: 80 mls/hr Metoprolol Tartrate (Lopressor) 25 mg PO BID [facility] Last Admin: 04/14/17 18:06 Dose: 25 mg Pantoprazole Sodium (Protonix Inj) 40 mg IVP DAILY [facility] Last Admin: 04/14/17 09:16 Dose: 40 mg Rosuvastatin Calcium (Crestor) 20 mg PO HS [facility] Last Admin: 04/14/17 21:28 Dose: 20 mg - Labs Labs: 04/15/17 06:16 04/13/17 11:53 - Constitutional Appears: Non-toxic, No Acute Distress - Head Exam Head Exam: ATRAUMATIC, NORMAL INSPECTION, NORMOCEPHALIC - Eye Exam Eye Exam: EOMI, Normal appearance. absent: Conjunctival injection, Scleral icterus - ENT Exam ENT Exam: Mucous Membranes Moist - Neck Exam Neck Exam: Full ROM, Normal Inspection - Respiratory Exam Respiratory Exam: Clear to Ausculation Bilateral, NORMAL BREATHING PATTERN. absent: Accessory Muscle Use, Rales, Rhonchi, Wheezes, Respiratory Distress - Cardiovascular Exam Cardiovascular Exam: REGULAR RHYTHM, RRR, +S1, +S2. absent: Murmur - GI/Abdominal Exam GI & Abdominal Exam: Soft, Normal Bowel Sounds. absent: Firm, Guarding, Rigid, Tenderness, Organomegaly - Extremities Exam Extremities Exam: Normal Capillary Refill, Normal Inspection. absent: Pedal Edema, Tenderness - Neurological Exam Neurological Exam: Alert, Awake, Oriented x3 - Psychiatric Exam Psychiatric exam: Normal Affect, Normal Mood - Skin Skin Exam: Dry, Intact, Normal Color, Warm Assessment and Plan - Assessment and Plan (Free Text) Assessment: 76yM with pmhx HTN, HLD, neuropathy of presenting with complaints of watery diarrhea for 2 weeks. 1. HTN 2. Hyperlipidemia 3. Diarrhea Plan: - etiology of diarrhea unclear, although possibly infectious given time proximity of clindamycin - C. Diff negative x 1 - f/u repeat C Diff x 2 and stool studies - f/u CT Abd/pelvis with PO contrast - FOBT negative - blood culture prelim neg x 2 - Flagyl 500mg PO q8 - Protonix 40mg po qd - Potassium repleted this AM with 1 Krider and 40mg po KCl - Consider starting IV Vanc if symptoms do not resolve - continue management of chronic issues as per primary Discussed with Dr. Reno Hidalgo PGY2 <Courtney Bojorquez MD - Last Filed: 04/15/17 16:34> Objective - Vital Signs/Intake and Output Vital Signs (last 24 hours): Temp Pulse Resp BP Pulse Ox 98.4 F 80 20 154/74 H 96 04/15/17 07:48 04/15/17 07:48 04/15/17 07:48 04/15/17 14:26 04/15/17 07:48 Intake and Output: 04/15/17 04/15/17 06:59 18:59 Intake Total 1950 1160 Output Total 3 Balance 1947 1160 - Medications Medications: Current Medications Acetaminophen (Tylenol 325mg Tab) 650 mg PO Q6 PRN PRN Reason: Pain, Mild (1-3) Baclofen (Lioresal) 10 mg PO TID [facility] Last Admin: 04/15/17 13:38 Dose: 10 mg Enoxaparin Sodium (Lovenox) 40 mg SC DAILY [facility] Last Admin: 04/15/17 10:15 Dose: 40 mg Gabapentin (Neurontin) 600 mg PO BID [facility] Last Admin: 04/15/17 10:15 Dose: 600 mg Sodium Chloride (Sodium Chloride 0.9%) 1,000 mls @ 80 mls/hr IV .[id number] [facility] Last Admin: 04/15/17 07:26 Dose: Not Given Metoprolol Tartrate (Lopressor) 25 mg PO BID [facility] Last Admin: 04/15/17 10:15 Dose: 25 mg Metronidazole (Flagyl) 500 mg PO Q8 [facility] Last Admin: 04/15/17 13:38 Dose: 500 mg Pantoprazole Sodium (Protonix Ec Tab) 40 mg PO DAILY [facility] Last Admin: 04/15/17 10:15 Dose: 40 mg Rosuvastatin Calcium (Crestor) 20 mg PO HS [facility] Last Admin: 04/14/17 21:28 Dose: 20 mg - Labs Labs: 04/15/17 06:16 04/15/17 06:16 Attending/Attestation - Attestation I have personally seen and examined this patient.: Yes I have fully participated in the care of the patient.: Yes I have reviewed all pertinent clinical information, including history, physical exam and plan: Yes Notes (Text): 04/15/17 16:29 I have seen and examined patient with GI fellow. In brief, this is a 76 year old male with medical history of HTN, hyperlipidemia, who presents to hospital with complaint of persistent diarrhea for the past 2 weeks after clindamycin use for toe infection. He presented with 7-10 watery loose bowel movements per day which is slowly decreasing. C difficile x 3 negative with negative viral and bacterial stool infectious work up. He had an EGD two years ago at [facility], no prior colonoscopy. Diet as tolerated. CTAP with po contrast shows thickening of recto sigmoid and esophagus. Likely non specific GE. Flagyl can be switched to po to complete 10 day course. Supplement electrolytes. Patient was recommended to have elective outpatient colonoscopy following resolution of acute symptoms, though he is adamantly refusing at this time. Risks of this strategy were discussed with patient in detail, he is willing to accept risk of having potential underlying disease go undetected. If hemodynamically stable and electrolyte repleted can be discharged to follow as outpatient
[2017-04-15] MEDS ORDERED: Potassium Chloride 20 mEq ER Tab PO ONE ×2 (07:00→12:00)
--- NOTE | 2017-04-15 07:54 | CP.PCM.PN ---
Subjective - Date & Time of Evaluation Date of Evaluation: 04/15/17 Time of Evaluation: 07:53 - Subjective Subjective: feels weak shortness of breath still diarrhea, pasty stools. Objective - Vital Signs/Intake and Output Vital Signs (last 24 hours): Temp Pulse Resp BP Pulse Ox 98.4 F 80 20 173/74 H 96 04/15/17 07:48 04/15/17 07:48 04/15/17 07:48 04/15/17 07:48 04/15/17 07:48 Intake and Output: 04/15/17 04/15/17 06:59 18:59 Intake Total 1950 Output Total 3 Balance 194 - Medications Medications: Current Medications Acetaminophen (Tylenol 325mg Tab) 650 mg PO Q6 PRN PRN Reason: Pain, Mild (1-3) Baclofen (Lioresal) 10 mg PO TID [facility] Last Admin: 04/14/17 18:04 Dose: 10 mg Enoxaparin Sodium (Lovenox) 40 mg SC DAILY [facility] Last Admin: 04/14/17 09:16 Dose: 40 mg Gabapentin (Neurontin) 600 mg PO BID [facility] Last Admin: 04/14/17 18:07 Dose: 600 mg Metronidazole (Flagyl) 500 mg in 100 mls @ 100 mls/hr IVPB Q8 [facility] Last Admin: 04/15/17 05:14 Dose: 100 mls/hr Sodium Chloride (Sodium Chloride 0.9%) 1,000 mls @ 80 mls/hr IV .[id number] [facility] Last Admin: 04/15/17 07:26 Dose: Not Given Potassium Chloride (Potassium Chloride 10 Meq/100 Ml) 10 meq in 100 mls @ 100 mls/hr IVPB ONCE ONE Stop: 04/15/17 07:59 Last Admin: 04/15/17 07:45 Dose: 100 mls/hr Metoprolol Tartrate (Lopressor) 25 mg PO BID [facility] Last Admin: 04/14/17 18:06 Dose: 25 mg Pantoprazole Sodium (Protonix Inj) 40 mg IVP DAILY [facility] Last Admin: 04/14/17 09:16 Dose: 40 mg Rosuvastatin Calcium (Crestor) 20 mg PO HS [facility] Last Admin: 04/14/17 21:28 Dose: 20 mg - Labs Labs: 04/15/17 06:16 04/13/17 11:53 - Constitutional Appears: No Acute Distress - Respiratory Exam Respiratory Exam: Clear to Ausculation Bilateral. absent: Rales - Cardiovascular Exam Cardiovascular Exam: REGULAR RHYTHM. absent: Murmur - GI/Abdominal Exam GI & Abdominal Exam: Soft. absent: Tenderness Assessment and Plan - Assessment and Plan (Free Text) Assessment: diarrhea acute gastroenteritis history of COPD, HTN Plan: will do a chest X-ray, ABG on room air continue iv flagyl BMP - pending
[2017-04-15 08:06] LABS: ALB/GLOB RATIO 0.9 (1.0-2.1); ALBUMIN 2.8 g/dL (3.5-5.0); ALT/SGPT 24 U/L (21-72); AST/SGOT 26 U/L (17-59); BLOOD UREA NITROGEN 9 mg/dL (9-20); CALCIUM 7.3 mg/dl (8.6-10.4); GFR AFRICAN-AMERICAN > 60; GFR NON-AFRICAN AMERICAN > 60; HDL CHOLESTEROL 23 mg/dL (30-70)
[2017-04-15 08:20] LABS: LDL CHOLESTEROL < 30 mg/dL (0-129)
[2017-04-15 08:45] LABS: ABG ALLEN TEST POS; ARTERIAL BLOOD GAS HCO3 20.8 mmol/L (21-28); ARTERIAL BLOOD GAS HEMOGLOBIN 10.6 g/dL (11.7-17.4); ARTERIAL BLOOD GAS O2 SAT 98.7 % (95-98); ARTERIAL BLOOD GAS PCO2 29 mm/Hg (35-45); ARTERIAL BLOOD GAS PH 7.41 (7.35-7.45); ARTERIAL BLOOD GAS PO2 82 mm/Hg (80-100); ARTERIAL BLOOD GAS TCO2 19.3 mmol/L (22-28)
[2017-04-15] MEDS: Enoxaparin 40 mg Syringe SC SCH (10:15)
[2017-04-15] MEDS ORDERED: Iohexol 240 (50 ml) PO ONE (10:15)
[2017-04-15] MEDS: Pantoprazole 40 mg EC Tab PO SCH (10:15)
--- NOTE | 2017-04-15 13:14 | CT ---
PROCEDURE: CT Abdomen and Pelvis without intravenous contrast HISTORY: intractable diarrhea COMPARISON: None. TECHNIQUE: Without contrast.. Contrast Dose: 0 Radiation dose: Total exam DLP = 502.40 mGy-cm. This CT exam was performed using one or more of the following dose reduction techniques: Automated exposure control, adjustment of the mA and/or kV according to patient size, and/or use of iterative reconstruction technique. FINDINGS: LOWER THORAX: Chronic fibrotic interstitial changes in both lower lobes. No acute infiltrate. Mild cardiomegaly. Nonspecific circumferential mural thickening of the distal esophagus. Esophagitis versus neoplasm. Consider further evaluation with endoscopy. LIVER: Unremarkable. No gross lesion or ductal dilatation. GALLBLADDER AND BILE DUCTS: Unremarkable. PANCREAS: Unremarkable. No gross lesion or ductal dilatation. SPLEEN: Unremarkable. ADRENALS: Unremarkable. No mass. KIDNEYS AND URETERS: Multiple bilateral renal cysts. Exophytic right upper pole cortical cyst, 5.7 cm. Additional smaller right renal cysts, 1.6 and 2.1 cm in the mid to lower pole. Exophytic left lower pole renal cortical cyst, 1.8 cm. Nonobstructing 5 mm mid left renal calculus. No right renal calculus. No hydronephrosis. VASCULATURE: Unremarkable. No aortic aneurysm. BOWEL: Circumferential mural thickening of the entire colon, most pronounced in the rectosigmoid colon, with mild pericolonic inflammatory change particularly in the rectosigmoid region, consistent with a nonspecific colitis. No bowel obstruction. No other abnormal bowel loops are identified. APPENDIX: Unremarkable. Normal appendix. PERITONEUM: Unremarkable. No free fluid. No free air. LYMPH NODES: Unremarkable. No enlarged lymph nodes. BLADDER: Unremarkable. REPRODUCTIVE: Normal prostate BONES: No acute fracture. OTHER FINDINGS: None. IMPRESSION: Findings consistent with nonspecific acute colitis. Nonobstructing left renal calculus. Circumferential mural thickening of distal esophagus, nonspecific. Consider further evaluation with endoscopy to exclude neoplasm. Additional minor findings as above.
--- NOTE | 2017-04-15 13:58 | RAD ---
HISTORY: shortness of breath COMPARISON: No prior. TECHNIQUE: Chest PA and lateral FINDINGS: LUNGS: Atelectasis at the lung bases. PLEURA: No significant pleural effusion identified. No pneumothorax apparent. CARDIOVASCULAR: No radiographic findings to suggest acute or significant cardiovascular disease. OSSEOUS STRUCTURES: No significant abnormalities. VISUALIZED UPPER ABDOMEN: Normal. OTHER FINDINGS: None. IMPRESSION: No active disease.
[2017-04-15 16:26] LABS: FOLATE 9.9 ng/mL
--- NOTE | 2017-04-16 08:17 | CP.PCM.PN ---
<Donald Galdamez - Last Filed: 04/16/17 13:04> Subjective - Date & Time of Evaluation Date of Evaluation: 04/16/17 Time of Evaluation: 07:45 - Subjective Subjective: PGY4 GI Follow-up Pt seen and examined bedside x3 BM overnight, soft as per pt not watery Denies any abd pain tolerating diet No other complaints Denies any fever, chills, or diaphoresis ROS: 10 point ROS conducted, neg other than above Objective - Vital Signs/Intake and Output Vital Signs (last 24 hours): Temp Pulse Resp BP Pulse Ox 98.2 F 68 20 128/63 96 04/16/17 00:00 04/16/17 00:00 04/16/17 00:00 04/16/17 00:00 04/16/17 00:00 Intake and Output: 04/16/17 04/16/17 06:59 18:59 Intake Total 2160 Balance 2160 - Medications Medications: Current Medications Acetaminophen (Tylenol 325mg Tab) 650 mg PO Q6 PRN PRN Reason: Pain, Mild (1-3) Baclofen (Lioresal) 10 mg PO TID [facility] Last Admin: 04/15/17 17:05 Dose: 10 mg Enoxaparin Sodium (Lovenox) 40 mg SC DAILY [facility] Last Admin: 04/15/17 10:15 Dose: 40 mg Gabapentin (Neurontin) 600 mg PO BID [facility] Last Admin: 04/15/17 17:05 Dose: 600 mg Sodium Chloride (Sodium Chloride 0.9%) 1,000 mls @ 80 mls/hr IV .[id number] [facility] Last Admin: 04/15/17 20:08 Dose: 80 mls/hr Metoprolol Tartrate (Lopressor) 25 mg PO BID [facility] Last Admin: 04/15/17 17:06 Dose: 25 mg Metronidazole (Flagyl) 500 mg PO Q8 [facility] Last Admin: 04/16/17 05:23 Dose: 500 mg Pantoprazole Sodium (Protonix Ec Tab) 40 mg PO DAILY [facility] Last Admin: 04/15/17 10:15 Dose: 40 mg Potassium Chloride (K-Dur 20 Meq Er Tab) 20 meq PO DAILY [facility] Rosuvastatin Calcium (Crestor) 20 mg PO HS [facility] Last Admin: 04/15/17 21:29 Dose: 20 mg - Labs Labs: 04/15/17 06:16 12/29/17 06:16 - Constitutional Appears: Well, No Acute Distress - Head Exam Head Exam: ATRAUMATIC, NORMOCEPHALIC - Eye Exam Eye Exam: Periorbital tenderness - ENT Exam ENT Exam: Mucous Membranes Moist - Respiratory Exam Respiratory Exam: Clear to Ausculation Bilateral, NORMAL BREATHING PATTERN. absent: Prolonged Expiratory Phase, Rales, Rhonchi, Wheezes, Respiratory Distress - Cardiovascular Exam Cardiovascular Exam: REGULAR RHYTHM, +S1, +S2 - GI/Abdominal Exam GI & Abdominal Exam: Soft, Normal Bowel Sounds. absent: Guarding, Rigid, Tenderness - Extremities Exam Extremities Exam: absent: Joint Swelling, Pedal Edema - Neurological Exam Neurological Exam: Alert, Awake, Oriented x3 - Psychiatric Exam Psychiatric exam: Normal Affect, Normal Mood - Skin Skin Exam: Dry, Intact, Normal Color, Warm Assessment and Plan - Assessment and Plan (Free Text) Assessment: 76yM with pmhx HTN, HLD, neuropathy of presenting with complaints of watery diarrhea for 2 weeks. 1. colitis of the rectosigmoid; infectous vs ischemic, Plan: - C. Diff negative - f/u CT Abd/pelvis with PO contrast - complete Flagyl 500mg PO q8 for 10 days course - Protonix 40mg po qd - Patient was recommended to have elective outpatient colonoscopy following resolution of acute symptoms, though he is adamantly refusing at this time. - Risks discussed in detail, he is willing to accept risk of having potential underlying malignancy going undetected - recommend at least follow-up with GI at the [place] -will sign off will d/w Dr. Bojorquez <[place] JAMES,[facility] - Last Filed: 04/16/17 13:49> Objective - Vital Signs/Intake and Output Vital Signs (last 24 hours): Temp Pulse Resp BP Pulse Ox 97.6 F 82 20 161/66 H 97 04/16/17 08:26 04/16/17 08:26 04/16/17 08:26 04/16/17 09:20 04/16/17 08:26 Intake and Output: 04/16/17 04/16/17 06:59 18:59 Intake Total 2160 Balance 2160 - Medications Medications: Current Medications Acetaminophen (Tylenol 325mg Tab) 650 mg PO Q6 PRN PRN Reason: Pain, Mild (1-3) Baclofen (Lioresal) 10 mg PO TID [facility] Last Admin: 04/16/17 13:03 Dose: 10 mg Enoxaparin Sodium (Lovenox) 40 mg SC DAILY [facility] Last Admin: 04/16/17 09:20 Dose: 40 mg Gabapentin (Neurontin) 600 mg PO BID [facility] Last Admin: 04/16/17 09:20 Dose: 600 mg Sodium Chloride (Sodium Chloride 0.9%) 1,000 mls @ 80 mls/hr IV .[id number] [facility] Last Admin: 04/16/17 09:00 Dose: 80 mls/hr Metoprolol Tartrate (Lopressor) 25 mg PO BID [facility] Last Admin: 04/16/17 09:20 Dose: 25 mg Metronidazole (Flagyl) 500 mg PO Q8 [facility] Last Admin: 04/16/17 13:03 Dose: 500 mg Pantoprazole Sodium (Protonix Ec Tab) 40 mg PO DAILY [facility] Last Admin: 04/16/17 09:20 Dose: 40 mg Potassium Chloride (K-Dur 20 Meq Er Tab) 20 meq PO DAILY [facility] Last Admin: 04/16/17 09:22 Dose: 20 meq Rosuvastatin Calcium (Crestor) 20 mg PO HS [facility] Last Admin: 04/15/17 21:29 Dose: 20 mg - Labs Labs: 04/16/17 07:52 04/16/17 07:52 Attending/Attestation - Attestation I have personally seen and examined this patient.: Yes I have fully participated in the care of the patient.: Yes I have reviewed all pertinent clinical information, including history, physical exam and plan: Yes Notes (Text): 04/16/17 13:46 I have seen and examined patient with GI fellow. In brief, this is a 76 year old male with medical history of HTN, hyperlipidemia, who presents to hospital with complaint of persistent diarrhea for the past 2 weeks after clindamycin use for toe infection. He presented with 7-10 watery loose bowel movements per day which is slowly decreased to 2-3 BM/day. C difficile x 3 negative with negative viral and bacterial stool infectious work up. He had an EGD two years ago at [facility], no prior colonoscopy. Diet as tolerated. CTAP with po contrast shows thickening of recto sigmoid and esophagus. Likely non specific GE. Flagyl can be switched to po to complete 10 day course. Electrolytes normal. Patient was recommended to have elective outpatient colonoscopy following resolution of acute symptoms, though he is adamantly refusing at this time. Risks of this strategy were discussed with patient in detail, he is willing to accept risk of having potential underlying disease go undetected. Patient is clinically cleared for discharge from GI perspective. Thank you for letting us participate in the care of your patient
[2017-04-16 08:27] LABS: BASO # 0.1 K/uL (0.0-0.2); BASO % 0.6 % (0.0-2.0); EOS # 0.2 K/uL (0.0-0.7); EOS % 2.2 % (0.0-4.0); HEMOGLOBIN 12.3 g/dL (12.0-18.0); LYMPH # 1.9 K/uL (1.0-4.3); LYMPH % 17.2 % (20.0-40.0); MEAN CELL VOLUME 102.5 fL (80.0-94.0); MEAN CORPUSCULAR HEMOGLOBIN 34.2 pg (27.0-31.0); MEAN CORPUSCULAR HGB CONC 33.3 g/dL (33.0-37.0); MEAN PLATELET VOLUME 7.9 fL (7.2-11.7); MONO # 1.1 K/uL (0.0-0.8); MONO % 9.6 % (0.0-10.0); NEUT % 70.4 % (50.0-75.0); NRBC % 0.1 % (0.0-2.0); RBC 3.61 Mil/uL (4.40-5.90); RED CELL DISTRIBUTION WIDTH 13.6 % (11.5-14.5); WHITE BLOOD COUNT 11.3 K/uL (4.8-10.8)
[2017-04-16] MEDS: Sodium Chloride 0.9% 1,000 ML IV SCH (09:00)
[2017-04-16 09:14] LABS: ALBUMIN 3.3 g/dL (3.5-5.0); ALT/SGPT 18 U/L (21-72); AST/SGOT 31 U/L (17-59); BLOOD UREA NITROGEN 6 mg/dL (9-20); CALCIUM 7.7 mg/dl (8.6-10.4); GFR AFRICAN-AMERICAN > 60; GFR NON-AFRICAN AMERICAN > 60; MAGNESIUM 1.7 mg/dL (1.6-2.3)
[2017-04-16] MEDS: Pantoprazole 40 mg EC Tab PO SCH (09:20)
[2017-04-16] MEDS: Enoxaparin 40 mg Syringe SC SCH (09:20)
[2017-04-16] MEDS: Potassium Chloride 20 mEq ER Tab PO SCH (09:22)
--- NOTE | 2017-04-16 15:33 | CP.PCM.PN ---
Subjective - Date & Time of Evaluation Date of Evaluation: 04/16/17 Time of Evaluation: 15:32 - Subjective Subjective: no abdominal pain diarrhea stopped Objective - Vital Signs/Intake and Output Vital Signs (last 24 hours): Temp Pulse Resp BP Pulse Ox 97.6 F 82 20 161/66 H 97 04/16/17 08:26 04/16/17 08:26 04/16/17 08:26 04/16/17 09:20 04/16/17 08:26 Intake and Output: 04/16/17 04/16/17 06:59 18:59 Intake Total 2160 1040 Balance 2160 1040 - Medications Medications: Current Medications Acetaminophen (Tylenol 325mg Tab) 650 mg PO Q6 PRN PRN Reason: Pain, Mild (1-3) Baclofen (Lioresal) 10 mg PO TID [facility] Last Admin: 04/16/17 13:03 Dose: 10 mg Enoxaparin Sodium (Lovenox) 40 mg SC DAILY [facility] Last Admin: 04/16/17 09:20 Dose: 40 mg Gabapentin (Neurontin) 600 mg PO BID [facility] Last Admin: 04/16/17 09:20 Dose: 600 mg Sodium Chloride (Sodium Chloride 0.9%) 1,000 mls @ 80 mls/hr IV .[id number] [facility] Last Admin: 04/16/17 09:00 Dose: 80 mls/hr Metoprolol Tartrate (Lopressor) 25 mg PO BID [facility] Last Admin: 04/16/17 09:20 Dose: 25 mg Metronidazole (Flagyl) 500 mg PO Q8 [facility] Last Admin: 04/16/17 13:03 Dose: 500 mg Pantoprazole Sodium (Protonix Ec Tab) 40 mg PO DAILY [facility] Last Admin: 04/16/17 09:20 Dose: 40 mg Potassium Chloride (K-Dur 20 Meq Er Tab) 20 meq PO DAILY [facility] Last Admin: 04/16/17 09:22 Dose: 20 meq Rosuvastatin Calcium (Crestor) 20 mg PO HS [facility] Last Admin: 04/15/17 21:29 Dose: 20 mg - Labs Labs: 04/16/17 07:52 04/16/17 07:52 - Constitutional Appears: No Acute Distress - Respiratory Exam Respiratory Exam: Clear to Ausculation Bilateral. absent: Wheezes - Cardiovascular Exam Cardiovascular Exam: REGULAR RHYTHM. absent: Murmur - GI/Abdominal Exam GI & Abdominal Exam: Soft. absent: Tenderness Assessment and Plan - Assessment and Plan (Free Text) Assessment: gastroenteritis negative stool c-diff hypertension COPD Plan: as per the nurse, GI cleared for discharge home. continue current care
[2017-04-17 08:30] VITALS: O2SAT 98
[2017-04-17] MEDS: Potassium Chloride 20 mEq ER Tab PO SCH (09:00)
[2017-04-17] MEDS: Pantoprazole 40 mg EC Tab PO SCH (10:00)
[2017-04-17] MEDS: Enoxaparin 40 mg Syringe SC SCH (10:00)
[2017-04-17 10:23] VITALS: BP 145/70; PULSE 80; TEMP 98
--- NOTE | 2017-04-17 11:30 | CP.PCM.PN ---
Subjective - Date & Time of Evaluation Date of Evaluation: 04/17/17 Time of Evaluation: 09:00 - Subjective Subjective: diarrhea got better less labored breathing Objective - Vital Signs/Intake and Output Vital Signs (last 24 hours): Temp Pulse Resp BP Pulse Ox 98 F 80 20 145/70 98 04/17/17 10:00 04/17/17 10:00 04/17/17 10:00 04/17/17 10:00 04/17/17 08:29 Intake and Output: 04/17/17 04/17/17 06:59 18:59 Intake Total 620 Balance 620 - Labs Labs: 04/16/17 07:52 04/16/17 07:52 - Constitutional Appears: No Acute Distress - Respiratory Exam Respiratory Exam: Clear to Ausculation Bilateral. absent: Rales - Cardiovascular Exam Cardiovascular Exam: REGULAR RHYTHM. absent: Murmur - GI/Abdominal Exam GI & Abdominal Exam: Soft. absent: Tenderness Assessment and Plan - Assessment and Plan (Free Text) Assessment: antibiotics associated diarrhea c-diff x 2 were negative. on iv flagyl hypokalemia corrected by po potassium. Plan: discharge patient home with po prescription of protonix and flagyl follow up with PMD on 04/22/17 at his office.
== END 2017-04-17 11:00 | disposition home or self-care (01) | DRG 395 ==
LOC: C.ER 11:05 → C.9E 15:06 → C.3T 16:29 → C.9E 16:46 → C.3T 18:57
PROVIDERS: ADMIT Internal Medicine; ATTEND Internal Medicine
DX: K52.1 Toxic gastroenteritis and colitis (principal); E86.0 Dehydration; E87.6 Hypokalemia; T36.8X5A Adverse effect of other systemic antibiotics, initial encounter; I10 Essential (primary) hypertension; J44.9 Chronic obstructive pulmonary disease, unspecified; E78.00 Pure hypercholesterolemia, unspecified; E78.5 Hyperlipidemia, unspecified; J45.909 Unspecified asthma, uncomplicated; Z87.01 Personal history of pneumonia (recurrent)

== ENCOUNTER 2017-04-25 13:59 | Emergency (ER) | payer MEDICARE ==
[2017-04-25 13:59] VITALS: BMI 26.6
[2017-04-25 14:19] VITALS: RESP 18; O2SAT 96
--- NOTE | 2017-04-25 15:04 | C.PDOC ---
History Of Present Illness The patient reports bilateral lower leg swelling over the past 4 days. Patient states that the swelling up to the lower thigh, and left leg is worse than right. The patient also reports that he was started on a new medication and some mild itching to the left lower leg. Patient denies trauma, pain, chest pain , SOB, back pain, numbness, or weakness. Time Seen by Provider: 04/25/17 14:22 Chief Complaint (Nursing): Lower Extremity Problem/Injury History Per: Patient History/Exam Limitations: no limitations Current Symptoms Are (Timing): Still Present Pain Scale Rating Of: 1 Recent travel outside of the [place]: No Past Medical History Reviewed: Historical Data, Nursing Documentation, Vital Signs Vital Signs: Last Vital Signs Temp 97.5 F L 04/25/17 14:16 Pulse 92 H 04/25/17 14:16 Resp 18 04/25/17 14:16 BP 156/71 H 04/25/17 14:16 Pulse Ox 96 04/25/17 15:10 - Medical History PMH: Arthritis (BACK, NECK, KNEES), Asthma, Bronchitis, COPD, HTN, Pneumonia Family History: States: Unknown Family Hx - Social History Hx Alcohol Use: Yes Hx Substance Use: No - Immunization History Hx Tetanus Toxoid Vaccination: No Hx Influenza Vaccination: Yes Hx Pneumococcal Vaccination: No Review Of Systems Except As Marked, All Systems Reviewed And Found Negative. Physical Exam - Physical Exam Appears: Non-toxic, No Acute Distress Skin: Normal Color, Warm Head: Atraumatic, Normacephalic Eye(s): bilateral: Normal Inspection, PERRL, EOMI Oral Mucosa: Moist Neck: Normal ROM Cardiovascular: Rhythm Regular Respiratory: Normal Breath Sounds, No Rales, No Rhonchi, No Wheezing Gastrointestinal/Abdominal: Soft, No Tenderness Back: Normal Inspection, No CVA Tenderness Extremity: Normal ROM, No Calf Tenderness, Capillary Refill (< 2 sec), Other ( Left leg with (+) 2+ edema with mild erythematous rash to the anterior lower leg up to the distal thight. Right leg has 1+ edema to the distal thight.) Extremity: Bilateral: Normal Color And Temperature Pulses: Left Dorsalis Pedis: Normal, Right Dorsalis Pedis: Normal Neurological/Psych: Oriented x3, Normal Speech, Normal Motor, Normal Sensation Gait: Steady ED Course And Treatment O2 Sat by Pulse Oximetry: 96 (on RA) Pulse Ox Interpretation: Normal Medical Decision Making Medical Decision Making: Venous Duplex of the bilateral legs is negative for DVT. Case was discussed with Dr. Cao who agrees that patient can be discharged home with some antibiotics for the red rash to the leg. On re-exam, the patient remains stable with normal. Lungs are CTA, heart is RRR , abdomen is soft, non-tender and the patient is tolerating PO well. Ambulatory in the ED with steady gait. Follow up with the medical doctor/clinic within 1-2 days. Return if worsened. Disposition - Disposition Referrals: Billie Cao MD [Staff Provider] - Disposition: HOME/ ROUTINE Disposition Time: 15:49 Condition: GOOD Additional Instructions: Follow up with the medical doctor/clinic within 1-2 days. Return if worsened. Prescriptions: Cephalexin [cephalexin] 500 mg PO TID #30 cap Mupirocin 2% Cream [Bactroban 2%] 30 gm EXT TID #3 tube Instructions: Cellulitis (ED) Forms: [employer] (Burkinan) - Clinical Impression Clinical Impression: Cellulitis, Leg edema
--- NOTE | 2017-04-25 15:20 | VASCLAB ---
PROCEDURE: Lower Extremity Venous Duplex Exam. HISTORY: bilater leg swel L > R, r/o DVT PRIORS: None. TECHNIQUE: Bilateral common femoral, femoral, popliteal and posterior tibial, peroneal and great saphenous veins were evaluated. Flow was assessed with color Doppler, compressibility, assessment of phasic flow and augmentation response. Report prepared by Russell Piedra, BS, RVT FINDINGS: RIGHT: 1. Common Femoral Vein: 1.1. Compressibility - Fully compressible: Thrombus - None : Flow - Phasic: Augmentation -Normal: Reflux - None. 2. Femoral Vein: 2.1. Compressibility - Fully compressible: Thrombus - None : Flow - Phasic: Augmentation -Normal: Reflux - None. 3. Popliteal Vein: 3.1. Compressibility - Fully compressible: Thrombus - None : Flow - Phasic: Augmentation -Normal: Reflux - None. 4. Posterior Tibial Vein: 4.1. Compressibility - Fully compressible: Thrombus - None: Flow - Phasic: Augmentation -Normal: Reflux - None. 5. Peroneal Vein: 5.1. Compressibility - Fully compressible: Thrombus - None: Flow - Phasic: Augmentation -Normal: Reflux - None. 6. Great Saphenous Vein: 6.1. Compressibility - Fully compressible: Thrombus - None: Flow - Phasic: Augmentation - Normal: Reflux - None. LEFT: 1. Common Femoral Vein: 1.1. Compressibility - Fully compressible: Thrombus - None: Flow - Phasic: Augmentation -Normal: Reflux - None. 2. Femoral Vein: 2.1. Compressibility - Fully compressible: Thrombus - None: Flow - Phasic: Augmentation -Normal: Reflux - None. 3. Popliteal Vein: 3.1. Compressibility - Fully compressible: Thrombus - None : Flow - Phasic: Augmentation -Normal: Reflux - None. 4. Posterior Tibial Vein: 4.1. Compressibility - Fully compressible: Thrombus - None: Flow - Phasic: Augmentation -Normal: Reflux - None. 5. Peroneal Vein: 5.1. Compressibility - Fully compressible: Thrombus - None: Flow - Phasic: Augmentation -Normal: Reflux - None. 6. Great Saphenous Vein: 6.1. Compressibility - Fully compressible: Thrombus - None: Flow - Phasic: Augmentation - Normal: Reflux - None. OTHER FINDINGS: Right: None significant. Left: None significant. IMPRESSION: Right: No evidence of deep or superficial vein thrombosis of the right lower extremity. Normal valve function noted of the right side. Left: No evidence of deep or superficial vein thrombosis of the left lower extremity. Normal valve function noted of the left side.
[2017-04-25 15:58] VITALS: BP 148/79; PULSE 86; TEMP 97.4
== END 2017-04-25 16:55 | disposition home or self-care (01) ==
LOC: C.ER 13:59
DX: L03.116 Cellulitis of left lower limb (principal); R60.0 Localized edema; I10 Essential (primary) hypertension; Z87.891 Personal history of nicotine dependence

== ENCOUNTER 2017-05-02 10:19 | Inpatient (IN) | payer MEDICARE ==
[2017-05-02 10:21] VITALS: BMI 26.6
[2017-05-02] MEDS ORDERED: Sodium Chloride 0.9% 1,000 ML IV ONE (10:47)
[2017-05-02 11:04] LABS: BASO # 0.1 K/uL (0.0-0.2); BASO % 0.9 % (0.0-2.0); EOS # 0.1 K/uL (0.0-0.7); EOS % 2.5 % (0.0-4.0); HEMOGLOBIN 11.3 g/dL (12.0-18.0); LYMPH # 1.4 K/uL (1.0-4.3); LYMPH % 22.7 % (20.0-40.0); MEAN CELL VOLUME 101.6 fL (80.0-94.0); MEAN CORPUSCULAR HEMOGLOBIN 34.5 pg (27.0-31.0); MEAN PLATELET VOLUME 8.1 fL (7.2-11.7); MONO # 0.7 K/uL (0.0-0.8); MONO % 12.2 % (0.0-10.0); NEUT # 3.7 K/uL (1.8-7.0); NEUT % 61.7 % (50.0-75.0); RBC 3.27 Mil/uL (4.40-5.90); RED CELL DISTRIBUTION WIDTH 14.6 % (11.5-14.5); WHITE BLOOD COUNT 6.1 K/uL (4.8-10.8)
--- NOTE | 2017-05-02 11:04 | C.PDOC ---
History Of Present Illness 76 y/o male presents to the ED c/o diarrhea for 5 weeks. The patient was seen by Dr. Cao 2 days ago and was given Clinamyacein. The patient states that diarrhea persisted for 15 episodes per day with no blood . The patient also notes feeling weak and passed out. The called Dr. Cao and was advised to come to the ER for further evaluation and admission. The patient denies chest pain and SOB. Time Seen by Provider: 05/02/17 10:29 Chief Complaint (Nursing): Weakness/Neurological Deficit History Per: Patient History/Exam Limitations: no limitations Onset/Duration Of Symptoms: Days Current Symptoms Are (Timing): Still Present Additional History Per: Patient Past Medical History Reviewed: Historical Data, Nursing Documentation, Vital Signs Vital Signs: Last Vital Signs Temp 97.6 F 05/02/17 10:24 Pulse 74 05/02/17 14:21 Resp 16 05/02/17 14:21 BP 128/83 05/02/17 14:21 Pulse Ox 97 05/02/17 14:58 - Medical History PMH: Arthritis (BACK, NECK, KNEES), Asthma, Bronchitis, COPD, HTN, Pneumonia Family History: States: No Known Family Hx - Social History Hx Alcohol Use: Yes Hx Substance Use: No - Immunization History Hx Tetanus Toxoid Vaccination: No Hx Influenza Vaccination: Yes Hx Pneumococcal Vaccination: Yes Review Of Systems Except As Marked, All Systems Reviewed And Found Negative. Constitutional: Negative for: Fever Cardiovascular: Negative for: Chest Pain Respiratory: Negative for: Cough, Shortness of Breath Gastrointestinal: Positive for: Abdominal Pain, Diarrhea (15 episodes per day ) . Negative for: Nausea, Vomiting Skin: Negative for: Rash Neurological: Positive for: Weakness Physical Exam - Physical Exam Appears: Non-toxic, Other (weak appearance ) Skin: Warm, Dry Head: Atraumatic, Normacephalic Eye(s): bilateral: Normal Inspection Oral Mucosa: Moist Throat: Normal Neck: Supple Chest: Symmetrical Cardiovascular: Rhythm Regular Respiratory: Normal Breath Sounds, No Rales, No Rhonchi Gastrointestinal/Abdominal: Soft, Tenderness (mild and diffused ), No Guarding, No Rebound Back: No CVA Tenderness Extremity: No Tenderness, Capillary Refill (2<sec.) Neurological/Psych: Oriented x3, Normal Speech Gait: Steady ED Course And Treatment - Laboratory Results Result Diagrams: 05/02/17 11:01 05/02/17 11:01 ECG Rhythm: Sinus Rhythm (77 bpm, normal interval, left axis deviation , and nonspecific t wave changes) O2 Sat by Pulse Oximetry: 97 (RA) - Radiology CXR: Viewed By Ak - Other Rad Chest X-ray X-Ray: Read By Radiologist Interpretation: PROCEDURE: CHEST RADIOGRAPH, 1 VIEW. HISTORY: Unspecified abdominal pain. COMPARISON: 2017. CT scan abdomen and pelvis including lower lung dick. None available. FINDINGS: LUNGS: Increased interstitial markings at the lung bases. No discrete infiltrates. PLEURA: No pneumothorax or pleural fluid seen. CARDIOVASCULAR: No radiographic findings to suggest acute or significant cardiovascular disease. OSSEOUS STRUCTURES: No significant abnormalities. VISUALIZED UPPER ABDOMEN: Normal. OTHER FINDINGS: None. IMPRESSION: Increased pulmonary parenchymal markings better seen on recent CT scan felt to represent chronic interstitial lung disease/ fibrosis. No discrete infiltrates. abd/pelvis ct X-Ray: Read By Radiologist Interpretation: PROCEDURE: CT Abdomen and Pelvis without Oral or IV contrast. HISTORY: abd pain. COMPARISON: None. TECHNIQUE: Contiguous axial images of the abdomen and pelvis. No oral or IV contrast administered. Coronal and Sagittal reformats generated. Radiation dose: Total exam DLP = 447.63 mGy-cm. This CT exam was performed using one or more of the following dose reduction techniques: Automated exposure control, adjustment of the mA and/or kV according to patient size, and/or use of iterative reconstruction technique. FINDINGS: There is limited evaluation of the solid organs without the administration of IV contrast. LOWER THORAX: Bibasilar atelectasis/ fibrosis. There is no visible pleural effusion or pneumothorax. Small hiatal hernia/ distal esophageal wall thickening. LIVER: Unremarkable unenhanced appearance. GALLBLADDER AND BILE DUCTS: Contracted gallbladder appears otherwise grossly unremarkable. PANCREAS: Unremarkable unenhanced appearance. SPLEEN: Unremarkable unenhanced appearance. ADRENALS: Unremarkable unenhanced appearance. KIDNEYS AND URETERS: No hydronephrosis or obstructing renal calculus. Bilateral low-density renal lesions, the largest appears exophytic at the right upper pole measuring approximately 4.7 cm which appears compatible with a cyst. BLADDER: The urinary bladder appears unremarkable. REPRODUCTIVE : Unremarkable. APPENDIX: The appendix appears within normal limits of caliber. No secondary signs of acute appendicitis. BOWEL: The stomach is nondistended. Lack of oral contrast limits evaluation for bowel pathology. The bowel loops appear within normal limits of caliber without evidence of intestinal obstruction. Diverticulosis without CT evidence of acute diverticulitis. Mild mucosal thickening of the right and rectosigmoid colon; correlate clinically for possibility of colitis. PERITONEUM: No significant free fluid. No definite free air. LYMPH NODES: Sub cm mesenteric and retroperitoneal lymph nodes, nonspecific. No bulky lymphadenopathy identified. VASCULATURE: No aortic aneurysm. BONES: Osseous demineralization. Degenerative changes. OTHER FINDINGS: None. IMPRESSION: Bibasilar atelectasis/fibrosis. Small hiatal hernia/ distal esophageal wall thickening. Bilateral low-density renal lesions, the largest of which measures 4.7 cm, exophytic right upper pole, likely. Diverticulosis without CT evidence of acute diverticulitis. Mild mucosal thickening of the right rectosigmoid colon; correlate clinically for possibility of colitis. Bibasilar mesenteric and retroperitoneal lymph nodes, nonspecific. Correlate clinically. - CT Scan/US Head CT Scan Other Rad Studies (CT/US): Read By Radiologist CT/US Interpretation: PROCEDURE: CT HEAD WITHOUT CONTRAST. HISTORY: dizziness. COMPARISON: Noncontrast head CT performed 03/26/17. TECHNIQUE: Axial computed tomography images were obtained through the head/brain without intravenous contrast. Radiation dose: Total exam DLP = 856.89 mGy-cm. This CT exam was performed using one or more of the following dose reduction techniques: Automated exposure control, adjustment of the mA and/or kV according to patient size, and/or use of iterative reconstruction technique. FINDINGS: HEMORRHAGE: No intracranial hemorrhage. BRAIN: Diffuse atrophy with prominence of the ventricles and sulci noted. No mass effect or edema. Scattered periventricular and subcortical white matter hypodensities, which are nonspecific, but often seen with chronic microvascular ischemic disease. Please note that MRI with diffusion imaging is more sensitive in the detection of acute ischemic event. VENTRICLES: No hydrocephalus. CALVARIUM: Unremarkable. PARANASAL SINUSES: Mucosal thickening of the ethmoid air cells, left maxillary sinus, and right sphenoid sinus. MASTOID AIR CELLS: Unremarkable as visualized. No inflammatory changes. OTHER FINDINGS: None. IMPRESSION: No acute intracranial pathology identified. Generalized atrophy. Nonspecific white matter changes. Mucosal thickening of the ethmoid air cells, left maxillary sinus, and right sphenoid sinus. Progress Note: Chest X- Ray , Blood work, UA, Head CT Scan, Abd/pelvis CT Scan and IV fluids were performed. Upon reassessment, the patient is afebrile. Dr. Cao admitted to carbon brush maker service for diarreha. Disposition Discussed With : Laureen Jaramillo Doctor Will See Patient In The: Hospital Counseled Patient/Family Regarding: Studies Performed, Diagnosis - Disposition Disposition: HOSPITALIZED Disposition Time: 13:56 Condition: FAIR - Clinical Impression Clinical Impression: Dehydration, Diarrhea, Syncope, Hypokalemia - Scribe Statement The provider has reviewed the documentation as recorded by the Scribsharon Huerta
[2017-05-02 11:19] LABS: ALB/GLOB RATIO 0.9 (1.0-2.1); ALBUMIN 3.4 g/dL (3.5-5.0); ALT/SGPT 16 U/L (21-72); AST/SGOT 27 U/L (17-59); BLOOD UREA NITROGEN 15 mg/dL (9-20); CALCIUM 7.9 mg/dl (8.6-10.4); GFR AFRICAN-AMERICAN > 60; GFR NON-AFRICAN AMERICAN > 60; LIPASE 102 U/L (23-300)
[2017-05-02 11:28] LABS: B-TYPE NATRIURETIC PEPTIDE 702 pg/mL (0-900)
[2017-05-02] MEDS ORDERED: Potassium Chloride 20 mEq ER Tab PO STA (11:59)
--- NOTE | 2017-05-02 12:04 | CT ---
PROCEDURE: CT HEAD WITHOUT CONTRAST. HISTORY: dizziness COMPARISON: Noncontrast head CT performed 03/26/17 TECHNIQUE: Axial computed tomography images were obtained through the head/brain without intravenous contrast. Radiation dose: Total exam DLP = 856.89 mGy-cm. This CT exam was performed using one or more of the following dose reduction techniques: Automated exposure control, adjustment of the mA and/or kV according to patient size, and/or use of iterative reconstruction technique. FINDINGS: HEMORRHAGE: No intracranial hemorrhage. BRAIN: Diffuse atrophy with prominence of the ventricles and sulci noted. No mass effect or edema. Scattered periventricular and subcortical white matter hypodensities, which are nonspecific, but often seen with chronic microvascular ischemic disease. Please note that MRI with diffusion imaging is more sensitive in the detection of acute ischemic event. VENTRICLES: No hydrocephalus. CALVARIUM: Unremarkable. PARANASAL SINUSES: Mucosal thickening of the ethmoid air cells, left maxillary sinus, and right sphenoid sinus. MASTOID AIR CELLS: Unremarkable as visualized. No inflammatory changes. OTHER FINDINGS: None. IMPRESSION: No acute intracranial pathology identified. Generalized atrophy. Nonspecific white matter changes. Mucosal thickening of the ethmoid air cells, left maxillary sinus, and right sphenoid sinus.
[2017-05-02] MEDS ORDERED: Potassium Chloride 20 mEq ER Tab PO ONE (12:05)
--- NOTE | 2017-05-02 13:19 | CT ---
PROCEDURE: CT Abdomen and Pelvis without Oral or IV contrast. HISTORY: abd pain COMPARISON: None. TECHNIQUE: Contiguous axial images of the abdomen and pelvis. No oral or IV contrast administered. Coronal and Sagittal reformats generated. Radiation dose: Total exam DLP = 447.63 mGy-cm. This CT exam was performed using one or more of the following dose reduction techniques: Automated exposure control, adjustment of the mA and/or kV according to patient size, and/or use of iterative reconstruction technique. FINDINGS: There is limited evaluation of the solid organs without the administration of IV contrast. LOWER THORAX: Bibasilar atelectasis/ fibrosis. There is no visible pleural effusion or pneumothorax. Small hiatal hernia/distal esophageal wall thickening. LIVER: Unremarkable unenhanced appearance. GALLBLADDER AND BILE DUCTS: Contracted gallbladder appears otherwise grossly unremarkable. PANCREAS: Unremarkable unenhanced appearance. SPLEEN: Unremarkable unenhanced appearance. ADRENALS: Unremarkable unenhanced appearance. KIDNEYS AND URETERS: No hydronephrosis or obstructing renal calculus. Bilateral low-density renal lesions, the largest appears exophytic at the right upper pole measuring approximately 4.7 cm which appears compatible with a cyst. BLADDER: The urinary bladder appears unremarkable. REPRODUCTIVE: Unremarkable. APPENDIX: The appendix appears within normal limits of caliber. No secondary signs of acute appendicitis. BOWEL: The stomach is nondistended. Lack of oral contrast limits evaluation for bowel pathology. The bowel loops appear within normal limits of caliber without evidence of intestinal obstruction. Diverticulosis without CT evidence of acute diverticulitis. Mild mucosal thickening of the right and rectosigmoid colon; correlate clinically for possibility of colitis. PERITONEUM: No significant free fluid. No definite free air. LYMPH NODES: Sub cm mesenteric and retroperitoneal lymph nodes, nonspecific. No bulky lymphadenopathy identified. VASCULATURE: No aortic aneurysm. BONES: Osseous demineralization. Degenerative changes. OTHER FINDINGS: None. IMPRESSION: Bibasilar atelectasis/fibrosis. Small hiatal hernia/ distal esophageal wall thickening. Bilateral low-density renal lesions, the largest of which measures 4.7 cm, exophytic right upper pole, likely. Diverticulosis without CT evidence of acute diverticulitis. Mild mucosal thickening of the right rectosigmoid colon; correlate clinically for possibility of colitis. Bibasilar mesenteric and retroperitoneal lymph nodes, nonspecific. Correlate clinically.
--- NOTE | 2017-05-02 13:53 | RAD ---
PROCEDURE: CHEST RADIOGRAPH, 1 VIEW HISTORY: Unspecified abdominal pain. COMPARISON: 2017. CT scan abdomen and pelvis including lower lung dick. None available. FINDINGS: LUNGS: Increased interstitial markings at the lung bases. No discrete infiltrates. PLEURA: No pneumothorax or pleural fluid seen. CARDIOVASCULAR: No radiographic findings to suggest acute or significant cardiovascular disease. OSSEOUS STRUCTURES: No significant abnormalities. VISUALIZED UPPER ABDOMEN: Normal. OTHER FINDINGS: None. IMPRESSION: Increased pulmonary parenchymal markings better seen on recent CT scan felt to represent chronic interstitial lung disease/ fibrosis. No discrete infiltrates.
[2017-05-02 14:36] LABS: SQUAMOUS EPITHIAL < 1 /hpf (0-5); URINE BILIRUBIN NEGATIVE (NEGATIVE); URINE BLOOD NEGATIVE (NEGATIVE); URINE CLARITY Clear (Clear); URINE COLOR Yellow (YELLOW); URINE GLUCOSE (UA) NORMAL (Normal); URINE LEUKOCYTE ESTERASE NEG Leu/uL (Negative); URINE NITRATE NEGATIVE (NEGATIVE); URINE PROTEIN NEGATIVE (NEGATIVE); URINE UROBILINOGEN NORMAL mg/dL (0.2-1.0)
--- NOTE | 2017-05-02 18:56 | CP.PCM.HP ---
History of Present Illness - History of Present Illness History of Present Illness: has collapsed today and a weeke ago has diarhea for 5 weeks after receiving antibiotics Present on Admission - Present on Admission Any Indicators Present on Admission: No Review of Systems - Review of Systems Systems not reviewed;Unavailable: Acuity of Condition - Constitutional Constitutional: As Per HPI - EENT Eyes: As Per HPI Ears: As Per HPI Nose/Mouth/Throat: As Per HPI - Cardiovascular Cardiovascular: As Per HPI - Respiratory Respiratory: As Per HPI - Gastrointestinal Gastrointestinal: As Per HPI - Genitourinary Genitourinary: As Per HPI - Reproductive: Male Reproductive:Male: As Per HPI - Musculoskeletal Musculoskeletal: As Per HPI - Integumentary Integumentary: As Per HPI - Neurological Neurological: As Per HPI - Psychiatric Psychiatric: As Per HPI - Endocrine Endocrine: As Per HPI - Hematologic/Lymphatic Hematologic: As Per HPI Past Patient History - Infectious Disease Hx of Infectious Diseases: None - Past Medical History & Family History Past Medical History?: Yes - Past Social History Smoking Status: Former Smoker - CARDIAC Hx Hypertension: Yes - PULMONARY Hx Asthma: Yes Hx Bronchitis: Yes Hx Chronic Obstructive Pulmonary Disease (COPD): Yes Hx Pneumonia: Yes - MUSCULOSKELETAL/RHEUMATOLOGICAL Hx Arthritis: Yes (BACK, NECK, KNEES) - PSYCHIATRIC Hx Substance Use: No - SURGICAL HISTORY Hx Surgeries: Yes Hx Cataract Extraction: Yes Other/Comment: Neck surgegy, neck fusion, c3-c7 - ANESTHESIA Hx Anesthesia: Yes Hx Anesthesia Reactions: No Hx Malignant Hyperthermia: No Meds Allergies/Adverse Reactions: Allergies Allergy/AdvReac Type Severity Reaction Status Date / Time lisinopril Allergy UNKNOWN Verified 05/02/17 10:31 monosodium glutamate Allergy UNKNOWN Verified 05/02/17 10:31 naproxen Allergy UNKNOWN Verified 05/02/17 10:31 Physical Exam - Constitutional Appears: Non-toxic - Head Exam Head Exam: ATRAUMATIC - Eye Exam Eye Exam: Normal appearance Pupil Exam: NORMAL ACCOMODATION - ENT Exam ENT Exam: Normal Exam - Neck Exam Neck exam: Positive for: Full Rom - Respiratory Exam Respiratory Exam: NORMAL BREATHING PATTERN - Cardiovascular Exam Cardiovascular Exam: REGULAR RHYTHM - GI/Abdominal Exam GI & Abdominal Exam: Distended, Normal Bowel Sounds - Rectal Exam Rectal Exam: NORMAL INSPECTION - Extremities Exam Extremities exam: Positive for: normal inspection - Back Exam Back exam: NORMAL INSPECTION - Neurological Exam Neurological exam: Alert, Normal Gait, Oriented x3 - Psychiatric Exam Psychiatric exam: Normal Affect - Skin Skin Exam: Abrasion Results - Vital Signs Recent Vital Signs: Last Vital Signs Temp 97.6 F 05/02/17 10:24 Pulse 71 05/02/17 17:46 Resp 14 05/02/17 17:46 BP 151/65 H 05/02/17 17:46 Pulse Ox 98 05/02/17 17:46 - Labs Result Diagrams: 05/02/17 11:01 05/02/17 11:01 Labs: Laboratory Results - last 24 hr 05/02/17 05/02/17 05/02/17 10:29 11:01 11:01 WBC 6.1 RBC 3.27 L Hgb 11.3 L Hct 33.3 L MCV 101.6 H MCH 34.5 H MCHC 34.0 RDW 14.6 H Plt Count 335 MPV 8.1 Neut % (Auto) 61.7 Lymph % (Auto) 22.7 [place] % (Auto) 12.2 H Eos % (Auto) 2.5 Baso % (Auto) 0.9 Neut # 3.7 Lymph # 1.4 [place] # 0.7 Eos # 0.1 Baso # 0.1 Sodium 136 Potassium 3.0 L Chloride 101 Carbon Dioxide 28 Anion Gap 10 BUN 15 Creatinine 0.9 Est GFR ( Amer) > 60 Est GFR (Non-Af Amer) > 60 POC Glucose (mg/dL) 135 H Random Glucose 144 H Calcium 7.9 L Total Bilirubin 0.5 AST 27 ALT 16 L Alkaline Phosphatase 59 Troponin I 0.0160 NT-Pro-B Natriuret Pep 702 Total Protein 7.1 Albumin 3.4 L Globulin 3.7 Albumin/Globulin Ratio 0.9 L Lipase 102 Urine Color Urine Clarity Urine pH Ur Specific [place] Urine Protein Urine Glucose (UA) Urine Ketones Urine Blood Urine Nitrate Urine Bilirubin Urine Urobilinogen Ur Leukocyte Esterase Urine WBC (Auto) Urine RBC (Auto) Ur Squamous Epith Cells 05/02/17 14:20 WBC RBC Hgb Hct MCV MCH MCHC RDW Plt Count MPV Neut % (Auto) Lymph % (Auto) [place] % (Auto) Eos % (Auto) Baso % (Auto) Neut # Lymph # [place] # Eos # Baso # Sodium Potassium Chloride Carbon Dioxide Anion Gap BUN Creatinine Est GFR ( Amer) Est GFR (Non-Af Amer) POC Glucose (mg/dL) Random Glucose Calcium Total Bilirubin AST ALT Alkaline Phosphatase Troponin I NT-Pro-B Natriuret Pep Total Protein Albumin Globulin Albumin/Globulin Ratio Lipase Urine Color Yellow Urine Clarity Clear Urine pH 6.0 Ur Specific [place] 1.016 Urine Protein Negative Urine Glucose (UA) Normal Urine Ketones Negative Urine Blood Negative Urine Nitrate Negative Urine Bilirubin Negative Urine Urobilinogen Normal Ur Leukocyte Esterase Neg Urine WBC (Auto) 1 Urine RBC (Auto) 1 Ur Squamous Epith Cells < 1 Assessment & Plan - Assessment and Plan (Free Text) Assessment: enterocolitic syncope Plan: admit and as per orders - Date & Time Date: 05/02/17 Time: 18:57
[2017-05-02 19:34] VITALS: RESP 20
[2017-05-02] MEDS ORDERED: Albuterol HFA 90 mcg/actuation (8 g) IH PRN (21:51)
[2017-05-02] MEDS ORDERED: Tears Naturale Forte (15ml) OU PRN (21:51)
[2017-05-03] MEDS ORDERED: Tiotropium 18 mcg Cap For Inhalation IH SCH (08:00)
[2017-05-03] MEDS: Enoxaparin 40 mg Syringe SC SCH (09:51)
[2017-05-03] MEDS ORDERED: Ergocalciferol 50,000 Intl Units Cap PO SCH (10:00)
--- NOTE | 2017-05-03 10:15 | CP.PCM.PN ---
Subjective - Date & Time of Evaluation Date of Evaluation: 05/03/17 Time of Evaluation: 10:12 - Subjective Subjective: pt has abd cramp diarhea c def positive Objective - Vital Signs/Intake and Output Vital Signs (last 24 hours): Temp Pulse Resp BP Pulse Ox 98.0 F 70 20 153/71 H 96 05/03/17 07:20 05/03/17 07:20 05/03/17 07:20 05/03/17 09:50 05/03/17 07:20 - Medications Medications: Current Medications Albuterol (Ventolin Hfa 90 Mcg/Actuation (8 G)) 2 puff IH RQ4 PRN PRN Reason: Shortness of Breath Baclofen (Lioresal) 10 mg PO TID [facility] Last Admin: 05/03/17 09:51 Dose: Not Given Enoxaparin Sodium (Lovenox) 40 mg SC DAILY [facility] Last Admin: 05/03/17 09:51 Dose: 40 mg Ergocalciferol (Drisdol 50,000 Intl Units Cap) 1 cap PO QWK [facility] Last Admin: 05/03/17 09:50 Dose: 1 cap Gabapentin (Neurontin) 600 mg PO TID [facility] Last Admin: 05/03/17 09:50 Dose: 600 mg Hypromellose (Tears Naturale Forte) 1 ml OU QID PRN PRN Reason: Dry eyes Metoprolol Tartrate (Lopressor) 25 mg PO BID [facility] Last Admin: 05/03/17 09:50 Dose: 25 mg Metronidazole (Flagyl) 500 mg PO Q6H [facility] Last Admin: 05/03/17 08:37 Dose: 500 mg Rosuvastatin Calcium (Crestor) 40 mg PO HS [facility] Tiotropium [place] (Spiriva) 18 mcg IH RQD [facility] - Labs Labs: 05/02/17 11:01 05/02/17 11:01 - Constitutional Appears: Non-toxic - Head Exam Head Exam: NORMAL INSPECTION - Eye Exam Eye Exam: Normal appearance Pupil Exam: NORMAL ACCOMODATION - ENT Exam ENT Exam: Mucous Membranes Moist - Neck Exam Neck Exam: Full ROM - Respiratory Exam Respiratory Exam: Clear to Ausculation Bilateral - Cardiovascular Exam Cardiovascular Exam: REGULAR RHYTHM - GI/Abdominal Exam GI & Abdominal Exam: Soft, Tenderness - Rectal Exam Rectal Exam: NORMAL INSPECTION - Exam External exam: NORMAL EXTERNAL EXAM - Back Exam Back Exam: NORMAL INSPECTION - Neurological Exam Neurological Exam: Normal Gait, Oriented x3 - Psychiatric Exam Psychiatric exam: Normal Affect - Skin Skin Exam: Normal Color Assessment and Plan - Assessment and Plan (Free Text) Assessment: syncope ac sheree cdef infection hx chf Plan: cont as per orders dr jackson consult cardiology
[2017-05-03 12:35] LABS: BASO % 0.6 % (0.0-2.0); EOS # 0.2 K/uL (0.0-0.7); EOS % 3.6 % (0.0-4.0); HEMOGLOBIN 10.4 g/dL (12.0-18.0); LYMPH # 1.4 K/uL (1.0-4.3); LYMPH % 24.9 % (20.0-40.0); MEAN CELL VOLUME 101.5 fL (80.0-94.0); MEAN CORPUSCULAR HGB CONC 33.5 g/dL (33.0-37.0); MEAN PLATELET VOLUME 7.7 fL (7.2-11.7); MONO # 0.7 K/uL (0.0-0.8); MONO % 12.4 % (0.0-10.0); NEUT # 3.3 K/uL (1.8-7.0); NEUT % 58.5 % (50.0-75.0); RBC 3.07 Mil/uL (4.40-5.90); RED CELL DISTRIBUTION WIDTH 14.6 % (11.5-14.5); WHITE BLOOD COUNT 5.6 K/uL (4.8-10.8)
--- NOTE | 2017-05-03 12:52 | CARD ---
APPROVED REPORT EXAM: Two-dimensional and M-mode echocardiogram with Doppler and color Doppler. Other Information Quality : GoodRhythm : INDICATION Syncope COPD RISK FACTORS Hypertension 2D DIMENSIONS IVSd0.9 (0.7-1.1cm)LVDd5.0 (3.9-5.9cm) PWd0.8 (0.7-1.1cm)LVDs3.6 (2.5-4.0cm) FS (%) 27.8 %LVEF (%)53.7 (>50%) M-Mode DIMENSIONS Left Atrium (MM)3.78 (2.5-4.0cm)Aortic Root3.89 (2.2-3.7cm) Aortic Cusp Exc.1.80 (1.5-2.0cm) Aortic Valve AI P 1/2 [id number] Mitral Valve MV E Zhpmcays72.3cm/sMV A Eiawymay92.7cm/sE/A ratio0.8 TDI E/Lateral E'0.0E/Medial E'0.0 Tricuspid Valve TR Peak [id number]/sTR Peak [id number] LEFT VENTRICLE The left ventricle is normal size. There is normal left ventricular wall thickness. Left ventricle systolic function is normal. The Ejection Fraction is 60-65%. There is normal LV segmental wall motion. The left ventricular diastolic function is normal. There is no ventricular septal defect visualized. RIGHT VENTRICLE The right ventricle is normal size. The right ventricular systolic function is normal. ATRIA The left atrium size is normal. The right atrium size is normal. AORTIC VALVE The aortic valve is mildly sclerotic. The aortic valve is tri-cuspid. There is moderate aortic regurgitation. There is no aortic valvular stenosis. MITRAL VALVE The mitral valve is normal in structure. There is no evidence of mitral valve prolapse. There is no mitral valve stenosis. TRICUSPID VALVE The tricuspid valve is normal in structure. There is trace tricuspid regurgitation. Right ventricular systolic pressure is estimated at 30-40 mmHg. There is mild pulmonary hypertension. PULMONIC VALVE The pulmonic valve is not well visualized. There is trace pulmonic valvular regurgitation. GREAT VESSELS The aortic root is mildly enlarged. 3.8 cm The ascending aorta is normal in size. The IVC is normal in size and collapses >50% with inspiration. PERICARDIAL EFFUSION There is no pericardial effusion. <Conclusion> Left ventricle systolic function is normal. The Ejection Fraction is 60-65%. There is moderate aortic regurgitation. There is mild pulmonary hypertension.
--- NOTE | 2017-05-03 12:54 | CP.PCM.CON ---
History of Present Illness - History of Present Illness History of Present Illness: 76-year-old gentleman with prior history of hypertension chronic obstructive pulmonary disease and hypercholesterolemia. He had multiple admissions for dehydration and near syncope. 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 Nonetheless admission there was no documented Clostridium difficile, however at this time he had 15 episodes of diarrhea followed by near syncope. The echocardiogram had normal left ventricular contractility with aortic insufficiency, no aortic stenosis. We'll continue with hydration, investigation and treatment for colitis.had spinal cord injury after a fall, dyspnea on minimal exertion Review of Systems - Review of Systems Systems not reviewed;Unavailable: Unstable Vital Signs - Constitutional Constitutional: Anorexia, Weakness - EENT Eyes: absent: Discharge Ears: Dizziness. absent: Ear Discharge Nose/Mouth/Throat: absent: Epistaxis - Cardiovascular Cardiovascular: Dyspnea, Syncope. absent: Acrocyanosis, Chest Pain, Diaphoresis , Orthopnea, Palpitations - Respiratory Respiratory: Dyspnea. absent: Cough, Hemoptysis - Gastrointestinal Gastrointestinal: Diarrhea. absent: Abdominal Pain, Vomiting - Genitourinary Genitourinary: absent: Change in Urinary Stream Past Patient History - Infectious Disease Hx of Infectious Diseases: None - Past Medical History & Family History Past Medical History?: Yes - Past Social History Smoking Status: Former Smoker - CARDIAC Hx Cardiac Disorders: Yes Hx Hypertension: Yes - PULMONARY Hx Respiratory Disorders: Yes Hx Asthma: Yes Hx Bronchitis: Yes Hx Chronic Obstructive Pulmonary Disease (COPD): Yes Hx Pneumonia: Yes - NEUROLOGICAL Hx Neurological Disorder: No - HEENT Hx HEENT Problems: No - RENAL Hx Chronic Kidney Disease: No - ENDOCRINE/METABOLIC Hx Endocrine Disorders: No - HEMATOLOGICAL/ONCOLOGICAL Hx Blood Disorders: No - INTEGUMENTARY Hx Dermatological Problems: No - MUSCULOSKELETAL/RHEUMATOLOGICAL Hx Musculoskeletal Disorders: Yes Hx Falls: Yes - GASTROINTESTINAL Hx Gastrointestinal Disorders: No - GENITOURINARY/GYNECOLOGICAL Hx Genitourinary Disorders: No - PSYCHIATRIC Hx Psychophysiologic Disorder: No Hx Substance Use: No - SURGICAL HISTORY Hx Surgeries: Yes Hx Cataract Extraction: Yes Other/Comment: Neck surgegy, neck fusion, c3-c7 - ANESTHESIA Hx Anesthesia: Yes Hx Anesthesia Reactions: No Hx Malignant Hyperthermia: No Has any member of the family had a problem w/ anesthesia?: No Meds Allergies/Adverse Reactions: Allergies Allergy/AdvReac Type Severity Reaction Status Date / Time lisinopril Allergy UNKNOWN Verified 05/02/17 10:31 monosodium glutamate Allergy UNKNOWN Verified 05/02/17 10:31 naproxen Allergy UNKNOWN Verified 05/02/17 10:31 - Medications Medications: Current Medications Albuterol Sulfate (Albuterol 0.042% Inhal [place]dul[place] (1.25mg/3ml) Ud) 1.25 mg INH RQ6 N[facility]I Baclofen (Lioresal) 10 mg PO TID [facility] Last Admin: 05/03/17 09:51 Dose: Not Given Enoxaparin Sodium (Lovenox) 40 mg SC DAILY [facility] Last Admin: 05/03/17 09:51 Dose: 40 mg Ergocalciferol (Drisdol 50,000 Intl Units Cap) 1 cap PO QWK [facility] Last Admin: 05/03/17 09:50 Dose: 1 cap Gabapentin (Neurontin) 600 mg PO TID [facility] Last Admin: 05/03/17 09:50 Dose: 600 mg Hypromellose (Tears Naturale Forte) 1 ml OU QID PRN PRN Reason: Dry eyes Loratadine (Claritin) 10 mg PO DAILY [facility] Last Admin: 05/03/17 11:12 Dose: 10 mg Metoprolol Tartrate (Lopressor) 25 mg PO BID [facility] Last Admin: 05/03/17 09:50 Dose: 25 mg Metronidazole (Flagyl) 500 mg PO Q6H [facility] Last Admin: 05/03/17 08:37 Dose: 500 mg Rosuvastatin Calcium (Crestor) 40 mg PO HS [facility] Tiotropium [place] (Spiriva) 18 mcg IH RQD [facility] Physical Exam - Constitutional Appears: No Acute Distress - Head Exam Head Exam: ATRAUMATIC - Eye Exam Eye Exam: EOMI - ENT Exam ENT Exam: Mucous Membranes Moist - Neck Exam Neck exam: Negative for: Lymphadenopathy, Thyromegaly - Respiratory Exam Respiratory Exam: Clear to Auscultation Bilateral. absent: Rales - Cardiovascular Exam Cardiovascular Exam: Diastolic murmur, REGULAR RHYTHM, Systolic Murmur - GI/Abdominal Exam GI & Abdominal Exam: Normal Bowel Sounds. absent: Organomegaly - Rectal Exam Rectal Exam: Deferred - Extremities Exam Extremities exam: Positive for: normal capillary refill. Negative for: calf tenderness - Neurological Exam Neurological exam: Alert, Oriented x3 - Psychiatric Exam Psychiatric exam: Normal Affect - Skin Skin Exam: Dry Results - Vital Signs Recent Vital Signs: Last Vital Signs Temp 98.0 F 05/03/17 07:20 Pulse 71 05/03/17 09:49 Resp 20 05/03/17 07:20 BP 153/71 H 05/03/17 09:50 Pulse Ox 95 05/03/17 09:49 - Labs Result Diagrams: 05/03/17 12:28 05/03/17 12:28 Labs: Laboratory Results - last 24 hr 05/02/17 05/02/17 05/03/17 14:20 18:00 12:28 WBC 5.6 RBC 3.07 L Hgb 10.4 L Hct 31.1 L MCV 101.5 H MCH 34.0 H MCHC 33.5 RDW 14.6 H Plt Count 310 MPV 7.7 Neut % (Auto) 58.5 Lymph % (Auto) 24.9 [place] % (Auto) 12.4 H Eos % (Auto) 3.6 Baso % (Auto) 0.6 Neut # 3.3 Lymph # 1.4 [place] # 0.7 Eos # 0.2 Baso # 0.0 Urine Color Yellow Urine Clarity Clear Urine pH 6.0 Ur Specific [place] 1.016 Urine Protein Negative Urine Glucose (UA) Normal Urine Ketones Negative Urine Blood Negative Urine Nitrate Negative Urine Bilirubin Negative Urine Urobilinogen Normal Ur Leukocyte Esterase Neg Urine WBC (Auto) 1 Urine RBC (Auto) 1 Ur Squamous Epith Cells < 1 C. difficile Ag & Toxin Positive toxin Assessment & Plan (1) Acute colitis Status: Acute Comment: Consider pseudomembranous colitis (2) Syncope Status: Acute Comment: Probably due to dehydration, on treatment (3) Dehydration Status: Acute Comment: With acute diarrhea probable colitis (4) Hypertension Status: Chronic (5) Mixed hyperlipidemia Status: Chronic
[2017-05-03 13:15] LABS: ALB/GLOB RATIO 0.8 (1.0-2.1); ALBUMIN 3.1 g/dL (3.5-5.0); ALT/SGPT 27 U/L (21-72); AST/SGOT 32 U/L (17-59); BLOOD UREA NITROGEN 11 mg/dL (9-20); CALCIUM 7.5 mg/dl (8.6-10.4); GFR AFRICAN-AMERICAN > 60; GFR NON-AFRICAN AMERICAN > 60; MAGNESIUM 1.9 mg/dL (1.6-2.3)
[2017-05-03] MEDS: Albuterol 0.042% Inhal Sol (1.25 mg/3 mL) UD INH SCH ×2 (13:28→21:12)
[2017-05-03] MEDS ORDERED: Potassium Chloride 20 mEq ER Tab PO ONE ×2 (14:30)
--- NOTE | 2017-05-03 23:55 | CARD ---
APPROVED REPORT EKG Measurement Heart [id number] <Conclusion> Normal sinus rhythm Left axis deviation Abnormal ECG
[2017-05-04] MEDS: Albuterol 0.042% Inhal Sol (1.25 mg/3 mL) UD INH SCH ×4 (02:34→19:59)
[2017-05-04 07:15] LABS: BASO % 0.7 % (0.0-2.0); EOS # 0.3 K/uL (0.0-0.7); EOS % 4.8 % (0.0-4.0); LYMPH # 1.5 K/uL (1.0-4.3); LYMPH % 26.1 % (20.0-40.0); MEAN CELL VOLUME 100.3 fL (80.0-94.0); MEAN CORPUSCULAR HEMOGLOBIN 34.1 pg (27.0-31.0); MEAN PLATELET VOLUME 7.6 fL (7.2-11.7); MONO # 0.7 K/uL (0.0-0.8); MONO % 11.4 % (0.0-10.0); NEUT # 3.2 K/uL (1.8-7.0); RBC 2.93 Mil/uL (4.40-5.90); RED CELL DISTRIBUTION WIDTH 14.2 % (11.5-14.5); WHITE BLOOD COUNT 5.7 K/uL (4.8-10.8)
[2017-05-04 07:48] LABS: ALB/GLOB RATIO 0.9 (1.0-2.1); ALBUMIN 2.9 g/dL (3.5-5.0); ALT/SGPT 22 U/L (21-72); AST/SGOT 27 U/L (17-59); BLOOD UREA NITROGEN 9 mg/dL (9-20); CALCIUM 7.3 mg/dl (8.6-10.4); GFR AFRICAN-AMERICAN > 60; GFR NON-AFRICAN AMERICAN > 60; MAGNESIUM 1.7 mg/dL (1.6-2.3)
[2017-05-04] MEDS: Enoxaparin 40 mg Syringe SC SCH (09:08)
--- NOTE | 2017-05-04 11:13 | CP.PCM.PN ---
Subjective - Date & Time of Evaluation Date of Evaluation: 05/04/17 Time of Evaluation: 11:10 - Subjective Subjective: felt dizzy and light headead when he got up to go to go to bathroom still has soft stool Objective - Vital Signs/Intake and Output Vital Signs (last 24 hours): Temp Pulse Resp BP Pulse Ox 98.1 F 69 20 155/71 H 95 05/04/17 07:15 05/04/17 07:15 05/04/17 07:15 05/04/17 09:07 05/04/17 07:15 Intake and Output: 05/04/17 05/04/17 06:59 18:59 Intake Total 100 Balance 100 - Medications Medications: Current Medications Albuterol Sulfate (Albuterol 0.042% Inhal Obdulia (1.25mg/3ml) Ud) 1.25 mg INH RQ6 [facility] Last Admin: 05/04/17 08:15 Dose: 1.25 mg Baclofen (Lioresal) 10 mg PO TID [facility] Last Admin: 05/04/17 09:08 Dose: 10 mg Calcium/Vitamin D (Oscal-D 250 Mg-125 Units Tab) 1 tab PO DAILY [facility] Enoxaparin Sodium (Lovenox) 40 mg SC DAILY [facility] Last Admin: 05/04/17 09:08 Dose: 40 mg Ergocalciferol (Drisdol 50,000 Intl Units Cap) 1 cap PO QWK [facility] Last Admin: 05/03/17 09:50 Dose: 1 cap Gabapentin (Neurontin) 600 mg PO TID [facility] Last Admin: 05/04/17 09:08 Dose: 600 mg Hypromellose (Tears Naturale Forte) 1 ml OU QID PRN PRN Reason: Dry eyes Loratadine (Claritin) 10 mg PO DAILY [facility] Last Admin: 05/04/17 09:08 Dose: 10 mg Metoprolol Tartrate (Lopressor) 25 mg PO BID [facility] Last Admin: 05/04/17 09:07 Dose: 25 mg Metronidazole (Flagyl) 500 mg PO Q6H [facility] Last Admin: 05/04/17 09:08 Dose: 500 mg Rosuvastatin Calcium (Crestor) 40 mg PO HS [facility] Last Admin: 05/03/17 22:07 Dose: 40 mg Tiotropium [place] (Spiriva) 18 mcg IH RQD [facility] - Labs Labs: 05/04/17 07:06 05/04/17 07:06 - Constitutional Appears: Non-toxic - Head Exam Head Exam: NORMAL INSPECTION - Eye Exam Eye Exam: Normal appearance - ENT Exam ENT Exam: Normal Exam - Neck Exam Neck Exam: Full ROM - Respiratory Exam Respiratory Exam: Clear to Ausculation Bilateral - Cardiovascular Exam Cardiovascular Exam: REGULAR RHYTHM - GI/Abdominal Exam GI & Abdominal Exam: Normal Bowel Sounds - Back Exam Back Exam: NORMAL INSPECTION - Neurological Exam Neurological Exam: Alert, Awake, Oriented x3 - Psychiatric Exam Psychiatric exam: Normal Affect - Skin Skin Exam: Normal Color Assessment and Plan - Assessment and Plan (Free Text) Assessment: ac c def infection htn dizziness Plan: cont as per orders
[2017-05-04] MEDS: Calcium-Vit D 250 mg-125 Units Tab UD PO SCH (12:15)
[2017-05-04] MEDS ORDERED: Potassium Chloride 20 mEq ER Tab PO ONE ×2 (16:17→18:00)
--- NOTE | 2017-05-04 18:36 | CP.PCM.PN ---
Subjective - Date & Time of Evaluation Date of Evaluation: 05/04/17 Time of Evaluation: 15:00 - Subjective Subjective: still dizzy, weak, est as out pt once hydrated well and soft stool stopped, w/u of ALEMAN, no TX Objective - Vital Signs/Intake and Output Vital Signs (last 24 hours): Temp Pulse Resp BP Pulse Ox 98.1 F 69 20 137/88 95 05/04/17 07:15 05/04/17 07:15 05/04/17 07:15 05/04/17 17:38 05/04/17 07:15 Intake and Output: 05/04/17 05/04/17 06:59 18:59 Intake Total 100 300 Balance 100 300 - Medications Medications: Current Medications Albuterol Sulfate (Albuterol 0.042% Inhal Obdulia (1.25mg/3ml) Ud) 1.25 mg INH RQ6 [facility] Last Admin: 05/04/17 14:15 Dose: 1.25 mg Baclofen (Lioresal) 10 mg PO TID [facility] Last Admin: 05/04/17 17:46 Dose: Not Given Calcium/Vitamin D (Oscal-D 250 Mg-125 Units Tab) 1 tab PO DAILY [facility] Last Admin: 05/04/17 12:15 Dose: 1 tab Enoxaparin Sodium (Lovenox) 40 mg SC DAILY [facility] Last Admin: 05/04/17 09:08 Dose: 40 mg Ergocalciferol (Drisdol 50,000 Intl Units Cap) 1 cap PO QWK [facility] Last Admin: 05/03/17 09:50 Dose: 1 cap Gabapentin (Neurontin) 600 mg PO TID [facility] Last Admin: 05/04/17 17:38 Dose: 600 mg Hypromellose (Tears Naturale Forte) 1 ml OU QID PRN PRN Reason: Dry eyes Loratadine (Claritin) 10 mg PO DAILY [facility] Last Admin: 05/04/17 09:08 Dose: 10 mg Metoprolol Tartrate (Lopressor) 25 mg PO BID [facility] Last Admin: 05/04/17 17:38 Dose: 25 mg Metronidazole (Flagyl) 500 mg PO Q6H [facility] Last Admin: 05/04/17 13:16 Dose: 500 mg Rosuvastatin Calcium (Crestor) 40 mg PO HS [facility] Last Admin: 05/03/17 22:07 Dose: 40 mg Tiotropium [place] (Spiriva) 18 mcg IH RQD [facility] - Labs Labs: 05/04/17 07:06 05/04/17 07:06 - Constitutional Appears: Toxic - Head Exam Head Exam: ATRAUMATIC - Eye Exam Eye Exam: EOMI - ENT Exam ENT Exam: Mucous Membranes Moist - Neck Exam Neck Exam: absent: Lymphadenopathy, Thyromegaly - Respiratory Exam Respiratory Exam: Clear to Ausculation Bilateral. absent: Rales - Cardiovascular Exam Cardiovascular Exam: REGULAR RHYTHM, Murmur - GI/Abdominal Exam GI & Abdominal Exam: Normal Bowel Sounds. absent: Organomegaly - Rectal Exam Rectal Exam: Deferred - Extremities Exam Extremities Exam: Normal Capillary Refill. absent: Calf Tenderness - Neurological Exam Neurological Exam: Alert, Oriented x3 - Psychiatric Exam Psychiatric exam: Anxious - Skin Skin Exam: Dry Assessment and Plan (1) Acute colitis Status: Acute (2) Syncope Status: Acute (3) Dehydration Status: Acute (4) Hypertension Status: Chronic (5) Mixed hyperlipidemia Status: Chronic
[2017-05-05] MEDS: Albuterol 0.042% Inhal Sol (1.25 mg/3 mL) UD INH SCH ×4 (01:22→19:49)
[2017-05-05] MEDS: Calcium-Vit D 250 mg-125 Units Tab UD PO SCH (09:21)
[2017-05-05] MEDS: Enoxaparin 40 mg Syringe SC SCH (09:22)
[2017-05-05 14:17] LABS: BASO # 0.1 K/uL (0.0-0.2); BASO % 1.1 % (0.0-2.0); EOS # 0.4 K/uL (0.0-0.7); EOS % 4.9 % (0.0-4.0); HEMOGLOBIN 10.9 g/dL (12.0-18.0); LYMPH # 1.6 K/uL (1.0-4.3); LYMPH % 22.6 % (20.0-40.0); MEAN CELL VOLUME 100.6 fL (80.0-94.0); MEAN CORPUSCULAR HGB CONC 33.8 g/dL (33.0-37.0); MONO # 0.8 K/uL (0.0-0.8); MONO % 11.2 % (0.0-10.0); NEUT # 4.3 K/uL (1.8-7.0); NEUT % 60.2 % (50.0-75.0); RBC 3.2 Mil/uL (4.40-5.90); RED CELL DISTRIBUTION WIDTH 14.3 % (11.5-14.5); WHITE BLOOD COUNT 7.1 K/uL (4.8-10.8)
[2017-05-05 14:43] LABS: ALBUMIN 3.4 g/dL (3.5-5.0); ALT/SGPT 27 U/L (21-72); AST/SGOT 24 U/L (17-59); BLOOD UREA NITROGEN 9 mg/dL (9-20); CALCIUM 8.3 mg/dl (8.6-10.4); GFR AFRICAN-AMERICAN > 60; GFR NON-AFRICAN AMERICAN > 60
[2017-05-06] MEDS: Albuterol 0.042% Inhal Sol (1.25 mg/3 mL) UD INH SCH ×3 (01:29→13:45)
[2017-05-06 08:52] VITALS: BP 168/79; PULSE 75; TEMP 98.4; O2SAT 95
[2017-05-06] MEDS: Calcium-Vit D 250 mg-125 Units Tab UD PO SCH (09:42)
[2017-05-06] MEDS: Enoxaparin 40 mg Syringe SC SCH (09:43)
--- NOTE | 2017-05-06 11:07 | CP.PCM.PN ---
Subjective - Date & Time of Evaluation Date of Evaluation: 05/06/17 Time of Evaluation: 11:07 - Subjective Subjective: no abd pain move his bowel good no pain no sob Objective - Vital Signs/Intake and Output Vital Signs (last 24 hours): Temp Pulse Resp BP Pulse Ox 98.4 F 75 20 168/79 H 95 05/06/17 07:10 05/06/17 07:10 05/06/17 07:10 05/06/17 09:42 05/06/17 07:10 Intake and Output: 05/06/17 05/06/17 06:59 18:59 Intake Total 520 Balance 520 - Medications Medications: Current Medications Albuterol Sulfate (Albuterol 0.042% Inhal Obdulia (1.25mg/3ml) Ud) 1.25 mg INH RQ6 [facility] Last Admin: 05/06/17 07:46 Dose: 1.25 mg Baclofen (Lioresal) 10 mg PO TID [facility] Last Admin: 05/06/17 09:43 Dose: Not Given Calcium/Vitamin D (Oscal-D 250 Mg-125 Units Tab) 1 tab PO DAILY [facility] Last Admin: 05/06/17 09:42 Dose: 1 tab Enoxaparin Sodium (Lovenox) 40 mg SC DAILY [facility] Last Admin: 05/06/17 09:43 Dose: 40 mg Ergocalciferol (Drisdol 50,000 Intl Units Cap) 1 cap PO QWK [facility] Last Admin: 05/03/17 09:50 Dose: 1 cap Gabapentin (Neurontin) 600 mg PO TID [facility] Last Admin: 05/06/17 09:43 Dose: 600 mg Hypromellose (Tears Naturale Forte) 1 ml OU QID PRN PRN Reason: Dry eyes Loratadine (Claritin) 10 mg PO DAILY [facility] Last Admin: 05/06/17 09:42 Dose: 10 mg Metoprolol Tartrate (Lopressor) 25 mg PO BID [facility] Last Admin: 05/06/17 09:42 Dose: 25 mg Metronidazole (Flagyl) 500 mg PO Q6H [facility] Last Admin: 05/06/17 09:15 Dose: 500 mg Rosuvastatin Calcium (Crestor) 40 mg PO HS [facility] Last Admin: 05/05/17 22:20 Dose: 40 mg Tiotropium [place] (Spiriva) 18 mcg IH RQD [facility] - Labs Labs: 05/05/17 14:11 05/05/17 14:11 - Constitutional Appears: Non-toxic - Head Exam Head Exam: NORMAL INSPECTION - Eye Exam Eye Exam: Normal appearance Pupil Exam: NORMAL ACCOMODATION - ENT Exam ENT Exam: Mucous Membranes Moist - Neck Exam Neck Exam: Full ROM - Respiratory Exam Respiratory Exam: NORMAL BREATHING PATTERN - Cardiovascular Exam Cardiovascular Exam: REGULAR RHYTHM - GI/Abdominal Exam GI & Abdominal Exam: Normal Bowel Sounds - Rectal Exam Rectal Exam: NORMAL INSPECTION - Exam External exam: NORMAL EXTERNAL EXAM - Extremities Exam Extremities Exam: Normal Inspection - Back Exam Back Exam: NORMAL INSPECTION - Neurological Exam Neurological Exam: Alert, Normal Gait, Oriented x3 - Psychiatric Exam Psychiatric exam: Normal Mood - Skin Skin Exam: Dry, Normal Color Assessment and Plan - Assessment and Plan (Free Text) Assessment: acsyncope ac enteritis c def infection Plan: d/c on med f/u in my sofice
[2017-05-06] MEDS ORDERED: Metoprolol Succinate 50 mg XL Tab PO SCH (11:30)
--- NOTE | 2017-05-06 12:35 | CP.PCM.PN ---
Subjective - Date & Time of Evaluation Date of Evaluation: 05/06/17 Time of Evaluation: 12:35 - Subjective Subjective: PATIENT WAS ADMITTED FOR SYNCOPE AND C DIFF; AAOX3 DENIES DIZZINESS, SOB, CHEST PAIN, NAUSEA AND VOMITING NO SIGN OF DISTRESS NOTED Objective - Vital Signs/Intake and Output Vital Signs (last 24 hours): Temp Pulse Resp BP Pulse Ox 98.4 F 75 20 168/79 H 95 05/06/17 07:10 05/06/17 07:10 05/06/17 07:10 05/06/17 09:42 05/06/17 07:10 Intake and Output: 05/06/17 05/06/17 06:59 18:59 Intake Total 520 Balance 520 - Medications Medications: Current Medications Albuterol Sulfate (Albuterol 0.042% Inhal Obdulia (1.25mg/3ml) Ud) 1.25 mg INH RQ6 [facility] Last Admin: 05/06/17 07:46 Dose: 1.25 mg Baclofen (Lioresal) 10 mg PO TID [facility] Last Admin: 05/06/17 09:43 Dose: Not Given Calcium/Vitamin D (Oscal-D 250 Mg-125 Units Tab) 1 tab PO DAILY [facility] Last Admin: 05/06/17 09:42 Dose: 1 tab Enoxaparin Sodium (Lovenox) 40 mg SC DAILY [facility] Last Admin: 05/06/17 09:43 Dose: 40 mg Ergocalciferol (Drisdol 50,000 Intl Units Cap) 1 cap PO QWK [facility] Last Admin: 05/03/17 09:50 Dose: 1 cap Gabapentin (Neurontin) 600 mg PO TID [facility] Last Admin: 05/06/17 09:43 Dose: 600 mg Hypromellose (Tears Naturale Forte) 1 ml OU QID PRN PRN Reason: Dry eyes Loratadine (Claritin) 10 mg PO DAILY [facility] Last Admin: 05/06/17 09:42 Dose: 10 mg Metoprolol Succinate (Toprol Xl) 50 mg PO DAILY [facility] Last Admin: 05/06/17 11:41 Dose: Not Given Metronidazole (Flagyl) 500 mg PO Q6H [facility] Last Admin: 05/06/17 09:15 Dose: 500 mg Rosuvastatin Calcium (Crestor) 40 mg PO HS [facility] Last Admin: 05/05/17 22:20 Dose: 40 mg Tiotropium [place] (Spiriva) 18 mcg IH RQD [facility] - Labs Labs: 05/05/17 14:11 05/05/17 14:11 Assessment and Plan - Assessment and Plan (Free Text) Assessment: PATIENT SEEN AND EXAMINED AT THE BEDSIDE; NO MORE DIARRHEA NOTED HEMOGLOBIN IS 10.9 LUNG SOUND CLEAR NORMAL ACTIVE BOWEL SOUND ALL [address] QUADRANT NOTED DISCUSS WITH [address] NIELSON WHO CLEAR THE PATIENT FOR DC FOLLOW UP WITH DR NIELSON AT HER OFFICE ---CALL FOR APPOINTMENT CONTINUE ALL YOUR HOME MEDICATION DIRETED NEW PRESCRIPTION GIVEN : FLAGYL 250 MG BY MOUTH EVERY 6 HOURS FOR INFECTION OF THE COLON(C-DIFF) TROPOL XL 50 MG DAILY BY MOUTH FOR HIGH BLOOD PRESSURE NITRO PATCH 0.2 EVERY OTHER DAY APPLY IN THE MORNING AND REMOVE IT AT NIGHT TIME FLORASTOR 250 MG DAILY BY MOUTH ACTIVITY TOLERATED CLEAN SURFACE WITH BLEACH WASH YOUR HAND OFTEN TAKE YOUR ANTIBITIC DIRECTED DRINK MORE LIQUIDS TO PREVENT DEHYDRATION CALL DR NIELSON OR GO TO THE EMERGENCY ROOM IF SYMTOMS RETURN OR WORSENING \ DISCUSS WITH PATIENT WHO AGREE AND VERBALIZED UNDERSTANDING
--- NOTE | 2017-05-06 22:54 | CP.PCM.PN ---
Subjective - Date & Time of Evaluation Date of Evaluation: 05/06/17 Time of Evaluation: 12:00 - Subjective Subjective: no diarrhea, no sob at rest for EST as outpt, discussed with pt Objective - Vital Signs/Intake and Output Vital Signs (last 24 hours): Temp Pulse Resp BP Pulse Ox 98.4 F 75 20 168/79 H 95 05/06/17 07:10 05/06/17 07:10 05/06/17 07:10 05/06/17 09:42 05/06/17 07:10 Intake and Output: 05/06/17 05/07/17 18:59 06:59 Intake Total 280 Balance 280 - Labs Labs: 05/05/17 14:11 05/05/17 14:11 - Constitutional Appears: Non-toxic - Head Exam Head Exam: ATRAUMATIC - Eye Exam Eye Exam: EOMI - ENT Exam ENT Exam: Mucous Membranes Moist - Neck Exam Neck Exam: absent: Lymphadenopathy, Thyromegaly - Respiratory Exam Respiratory Exam: Clear to Ausculation Bilateral. absent: Rales - Cardiovascular Exam Cardiovascular Exam: REGULAR RHYTHM, Murmur - GI/Abdominal Exam GI & Abdominal Exam: Normal Bowel Sounds. absent: Tenderness, Organomegaly - Rectal Exam Rectal Exam: Deferred - Extremities Exam Extremities Exam: Normal Capillary Refill. absent: Calf Tenderness - Neurological Exam Neurological Exam: Alert, Oriented x3 - Psychiatric Exam Psychiatric exam: Normal Mood - Skin Skin Exam: Dry Assessment and Plan (1) Acute colitis Status: Acute (2) Syncope Status: Acute (3) Dehydration Status: Acute (4) Hypertension Status: Chronic (5) Mixed hyperlipidemia Status: Chronic
== END 2017-05-06 15:11 | disposition home or self-care (01) | DRG 373 ==
LOC: C.ER 10:19 → C.9E 13:54 → C.6T 17:52 → C.5S 22:02
PROVIDERS: ADMIT Internal Medicine; ATTEND Internal Medicine
DX: A04.72 Enterocolitis due to Clostridium difficile, not specified as recurrent (principal); I50.9 Heart failure, unspecified; I11.0 Hypertensive heart disease with heart failure; E86.0 Dehydration; Z87.891 Personal history of nicotine dependence; I35.1 Nonrheumatic aortic (valve) insufficiency; J44.9 Chronic obstructive pulmonary disease, unspecified; E87.6 Hypokalemia; E78.2 Mixed hyperlipidemia